=== PATIENT | female | born 1935 | race Caucasian/White ===

== ENCOUNTER 2017-08-12 13:20 | Emergency (ER) | payer MEDICARE, OTHER ==
[2017-08-12] MEDS ORDERED: ASPIRIN 81 MG TABLET, CHEWABLE PO ONE (13:32)
--- NOTE | 2017-08-12 13:33 | ER Document Report ---
ED Medical Screen (RME) - General Chief Complaint: Chest Pain Stated Complaint: CHEST PAIN Time Seen by Provider: 08/12/17 13:31 Notes: The patient is an 82-year-old female, past medical history hypertension, A fib , "leaky heart valve", "aneurysm that is not big enough to fix", current smoker , presents with chest pain for 1 hour. She has had a continuous cough and is being treated for bronchitis. She took 3 nitros mild relief of her chest pain. Patient finished a course of prednisone and Levaquin for bronchitis. PE: No respiratory distress. Scattered wheezes. RRR. I have greeted and performed a rapid initial assessment of this patient. A comprehensive ED assessment and evaluation of the patient, analysis of test results and completion of the medical decision making process will be conducted by additional ED providers. TRAVEL OUTSIDE OF THE [place] IN LAST 30 DAYS: No - Related Data Allergies/Adverse Reactions: Sulfa (Sulfonamide Antibiotics) Allergy (Verified 08/12/17 13:21) Physical Exam - Vital signs Vitals: Temp Pulse Resp BP Pulse Ox 98.6 F 66 20 151/49 H 92 08/12/17 13:36 08/12/17 13:36 08/12/17 13:36 08/12/17 13:36 08/12/17 13:36 Course - Vital Signs Vital signs: Temp Pulse Resp BP Pulse Ox 98.6 F 66 20 151/49 H 92 08/12/17 13:36 08/12/17 13:36 08/12/17 13:36 08/12/17 13:36 08/12/17 13:36
[2017-08-12] MEDS ORDERED: IPRATROPIUM/ALBUTEROL 0.5-2.5 MG/3 ML AMPUL NEB ONE (13:40)
[2017-08-12 14:21] LABS: ABSOLUTE LYMPHOCYTES (AUTO) 0.8 10^3/uL (0.5-4.7); ABSOLUTE MONOCYTES (AUTO) 0.8 10^3/uL (0.1-1.4); ABSOLUTE NEUT (AUTO) 10.4 10^3/uL (1.7-8.2); BASOPHILS % (AUTO) 0.2 % (0-2); HEMATOCRIT 36.4 % (36.0-47.0); HEMOGLOBIN 11.8 g/dL (12.0-15.5); LYMPHOCYTES % (AUTO) 6.6 % (13-45); MEAN CORPUSCULAR HEMOGLOBIN 27.5 pg (27.0-33.4); MEAN CORPUSCULAR HGB CONC 32.5 g/dL (32.0-36.0); MEAN CORPUSCULAR VOLUME 85 fl (80-97); MONOCYTES % (AUTO) 6.9 % (3-13); PLATELET COUNT 268 10^3/uL (150-450); RED CELL DISTRIBUTION WIDTH 21.1 % (11.5-14.0); SEGMENTED NEUTROPHILS % (AUTO) 86.3 % (42-78); TOTAL CELLS COUNTED % (AUTO) 100 %
[2017-08-12] MEDS ORDERED: MAGNESIUM SULFATE/D5W 1 GM/100 ML RTUPB IV ONE (14:53)
[2017-08-12] MEDS ORDERED: METHYLPREDNISOLONE INJ 125 MG/2 ML SDV IV ONE (14:53)
--- NOTE | 2017-08-12 14:57 | RADIOLOGY REPORT (SQ) ---
EXAM DESCRIPTION: CHEST SINGLE VIEW COMPLETED DATE/TIME: 08/12/2017 2:21 pm REASON FOR STUDY: chest pain, cough COMPARISON: December 2006 EXAM PARAMETERS: NUMBER OF VIEWS: One view. TECHNIQUE: Single frontal radiographic view of the chest acquired. RADIATION DOSE: NA LIMITATIONS: None. FINDINGS: LUNGS AND PLEURA: No opacities, masses or pneumothorax. No pleural effusion. MEDIASTINUM AND HILAR STRUCTURES: No masses. Contour normal. HEART AND VASCULAR STRUCTURES: Cardiac silhouette is mildly enlarged. BONES: No acute findings. HARDWARE: None in the chest. OTHER: No other significant finding. IMPRESSION: NO ACUTE RADIOGRAPHIC FINDING IN THE CHEST. TECHNICAL DOCUMENTATION: JOB ID: [id number] [employer]- All Rights Reserved Reading location - IP/workstation name: [email or web address]
[2017-08-12 15:00] LABS: CREATINE KINASE MB 1.33 ng/mL (<4.55); TROPONIN I 0.017 ng/mL
[2017-08-12 16:34] LABS: ALANINE AMINOTRANSFERASE 26 U/L (9-52); ALBUMIN 3.5 g/dL (3.5-5.0); ALKALINE PHOSPHATASE 70 U/L (38-126); ANION GAP 11 (5-19); ASPARTATE AMINO TRANSFERASE 24 U/L (14-36); BILIRUBIN,DIRECT 0.4 mg/dL (0.0-0.4); BILIRUBIN,TOTAL 0.4 mg/dL (0.2-1.3); BLOOD UREA NITROGEN 28 mg/dL (7-20); CARBON DIOXIDE 28 mmol/L (22-30); CHLORIDE 100 mmol/L (98-107); CREATINE KINASE 31 U/L (30-135); GLUCOSE 145 mg/dL (75-110); POTASSIUM 3.4 mmol/L (3.6-5.0); SODIUM 139.3 mmol/L (137-145); TOTAL PROTEIN 6.2 g/dL (6.3-8.2)
--- NOTE | 2017-08-12 17:13 | ER Document Report ---
ED General - General Chief Complaint: Chest Pain Stated Complaint: CHEST PAIN Time Seen by Provider: 08/12/17 13:31 Mode of Arrival: Wheelchair Information source: Patient Notes: This is an 82-year-old female with a history of COPD, atrial fibrillation, recent treatment for URI with levofloxacin, prednisone who presents with cough, congestion, chest tightness. TRAVEL OUTSIDE OF THE [place] IN LAST 30 DAYS: No - HPI Onset: Last week Onset/Duration: Gradual Quality of pain: No pain Severity: None Associated symptoms: Shortness of breath, Other - Chest tightness Exacerbated by: Movement Relieved by: Denies Similar symptoms previously: Yes Recently seen / treated by doctor: Yes - Related Data Allergies/Adverse Reactions: Sulfa (Sulfonamide Antibiotics) Allergy (Verified 08/12/17 13:44) Past Medical History - General Information source: Patient - Social History Smoking Status: Current Every Day Smoker Cigarette use (# per day): Yes - Half a pack per day Chew tobacco use (# tins/day): No Frequency of alcohol use: None Drug Abuse: None Lives with: Family Family History: None Patient has suicidal ideation: No Patient has homicidal ideation: No - Past Medical History Cardiac Medical History: Reports: Hx Atrial Fibrillation, Hx Hypercholesterolemia, Hx Hypertension Renal/ Medical History: Denies: Hx Peritoneal Dialysis GI Medical History: Reports: Hx Gastroesophageal Reflux Disease Past Surgical History: Reports: Hx Cholecystectomy, Hx Hysterectomy Review of Systems - Review of Systems Constitutional: denies: Chills, Fever EENT: No symptoms reported Cardiovascular: No symptoms reported Respiratory: See HPI Gastrointestinal: No symptoms reported Genitourinary: No symptoms reported Female Genitourinary: No symptoms reported Musculoskeletal: No symptoms reported Skin: No symptoms reported Hematologic/Lymphatic: No symptoms reported Neurological/Psychological: No symptoms reported Physical Exam - Vital signs Vitals: Pulse Ox 98 08/12/17 13:32 Notes: Physical exam: GENERAL: 82-year-old female, alert and oriented 3, tachypnea, wheezing audibly HEAD: Atraumatic, normocephalic. EYES: Pupils equal round and reactive to light, extraocular movements intact, sclera anicteric, conjunctiva are normal. ENT: TMs normal, nares patent, oropharynx clear without exudates. Moist mucous membranes. NECK: Normal range of motion, supple without obvious mass or JVD. LUNGS: Lateral wheezes HEART: Regular rate and rhythm without murmurs, rubs or gallops. ABDOMEN: Soft, normoactive bowel sounds. No tenderness to palpation. No guarding, no rebound. No masses appreciated. EXTREMITIES: Normal range of motion, no pitting or edema. No clubbing or cyanosis. NEUROLOGICAL: Cranial nerves II through XII grossly intact. Normal speech, moving all extremities. PSYCH: Normal mood, normal affect. SKIN: Warm, Dry, normal turgor, no rashes or lesions noted. Course - Re-evaluation Re-evalutation: 08/12/17 17:13 Note: Patient looks good and wants to go home and she is improved significantly with nebulizer treatments. Chest x-ray looked good without pneumonia. EKG showed sinus rhythm with a prolonged QTC. Patient was given IV magnesium as well as potassium supplementation. Additionally, will recommend patient stop her levofloxacin. 08/12/17 17:15 - Vital Signs Vital signs: Temp Pulse Resp BP Pulse Ox 98.6 F 66 16 142/56 H 97 08/12/17 13:36 08/12/17 13:36 08/12/17 16:03 08/12/17 16:03 08/12/17 16:03 - Laboratory Result Diagrams: 08/12/17 14:00 08/12/17 16:04 Laboratory results interpreted by me: 08/12/17 08/12/17 14:00 16:04 WBC 12.0 H Hgb 11.8 L RDW 21.1 H Seg Neutrophils % 86.3 H Lymphocytes % 6.6 L Absolute Neutrophils 10.4 H Potassium 3.4 L BUN 28 H Est GFR ( Amer) 54 L Est GFR (Non-Af Amer) 45 L Glucose 145 H Total Protein 6.2 L - Diagnostic Test Radiology reviewed: Image reviewed, Reports reviewed - Chest x-ray shows no infiltrates - EKG Interpretation by Me Rate: Normal Rhythm: NSR - EKG shows normal sinus rhythm with a ventricular rate of 70, no acute ST-T wave changes. The QTC is 514. Discharge - Discharge Clinical Impression: COPD exacerbation Condition: Stable Disposition: HOME, SELF-CARE Additional Instructions: In the emergency room, you were given: Albuterol/ipratropium dual nebs IV Solu-Medrol 125 mg IV magnesium P.o. KCl The chest x-ray showed no pneumonia. Your potassium was a slight bit low (you were given supplementation in the ER). Recommendations: I added a cough syrup that had both the Mucinex and the codeine in it. Take the Medrol Dosepak (this is the steroids) as prescribed. I would like you to stop the antibiotic for ( levofloxacin). Return to the emergency room for any worsening shortness of breath, worsening cough or any concerns or getting worse. I would like you to follow-up with your primary care doctor in the next few days. A copy of today's labs and EKG report with you when you go. Prescriptions: Codeine Phosphate/Guaifenesin [Codeine-Guaifen 10-100 mg/5 ml] 5 ml PO Q4HP PRN #120 liquid PRN Reason: Methylprednisolone [Medrol Dosepack (4 mg/Tab) 21 Tab/Dosepak] 4 mg PO ASDIR PRN #21 tab.ds.pk PRN Reason: Referrals: PARRISH RASHID MD [Primary Care Provider] - Follow up in 3-5 days
[2017-08-12] MEDS ORDERED: POTASSIUM CHLORIDE 10 MEQ TABLET.SA PO ONE (17:15)
[2017-08-12 17:44] VITALS: BP 158/65
--- NOTE | 2017-08-12 22:21 | EKG REPORT ---
SEVERITY:- ABNORMAL ECG - SINUS RHYTHM LEFT VENTRICULAR HYPERTROPHY INFERIOR INFARCT, OLD PROLONGED QT INTERVAL : Confirmed by: Elida Patino 12-Aug-2017 22:20:17
== END 2017-08-12 17:40 | disposition home or self-care (01) ==
LOC: ER 13:20
DX: J44.1 Chronic obstructive pulmonary disease with (acute) exacerbation (principal); R07.89 Other chest pain; R05 Cough; R06.02 Shortness of breath; F17.210 Nicotine dependence, cigarettes, uncomplicated; I10 Essential (primary) hypertension; Z88.2 Allergy status to sulfonamides
CPT/HCPCS: 93005; 94640; 99285; 96375; 96365; 36415; 82553; 82550; 85025; 80053; 84484; 71045; 93010; A9270 ×3; J2930; J3475; J7620

== ENCOUNTER 2017-08-23 11:49 | Inpatient (IN) | payer MEDICARE, OTHER ==
[2017-08-23] MEDS ORDERED: FENTANYL CITRATE INJ/PF 100 MCG/2 ML AMPUL IV ONE ×2 (12:07→13:23)
--- NOTE | 2017-08-23 12:13 | ER Document Report ---
ED Fall - General Mode of Arrival: Ambulatory Information source: Patient TRAVEL OUTSIDE OF THE [place] IN LAST 30 DAYS: No <KB JUÁREZ - Last Filed: 08/23/17 12:17> <TAD ALEJANDRO - Last Filed: 08/23/17 13:36> - General Chief Complaint: Fall Stated Complaint: THIGH PAIN Time Seen by Provider: 08/23/17 11:58 Notes: Patient is an 82 year old female with lung cancer and a recent left upper lobectomy presents to the emergency department complaining of right thigh pain secondary to a mechanical trip and fall. Patient states she tripped on something and landed on the floor in her house on the right side. Patient states she was attempting to brace her fall with her right arm. She report being unable to stand on her right leg due to pain. Patient also complains of some lower back pain. Patient denies head trauma or loss of consciousness. Patient had her left upper lobectomy in April 2017. [facility]. (KB JUÁREZ) - Related data Allergies/Adverse Reactions: Sulfa (Sulfonamide Antibiotics) Allergy (Verified 08/12/17 13:44) Past Medical History - General Information source: Patient - Social History Smoking Status: Current Some Day Smoker Cigarette use (# per day): Yes - 1/2 a pack a day Family History: None - Past Medical History Cardiac Medical History: Reports: Hx Atrial Fibrillation, Hx Hypercholesterolemia, Hx Hypertension GI Medical History: Reports: Hx Gastroesophageal Reflux Disease Past Surgical History: Reports: Hx Cholecystectomy, Hx Hysterectomy <KB JUÁREZ - Last Filed: 08/23/17 12:17> Review of Systems - Review of Systems Constitutional: No symptoms reported EENT: No symptoms reported Cardiovascular: No symptoms reported Respiratory: No symptoms reported Gastrointestinal: No symptoms reported Genitourinary: No symptoms reported Female Genitourinary: No symptoms reported Musculoskeletal: See HPI, Back pain Skin: No symptoms reported Hematologic/Lymphatic: No symptoms reported Neurological/Psychological: No symptoms reported -: Yes All other systems reviewed and negative <KB JUÁREZ - Last Filed: 08/23/17 12:17> Physical Exam - General General appearance: Appears well, Alert In distress: None - HEENT Head: Normocephalic, Atraumatic Eyes: Normal Conjunctiva: Normal Extraocular movements intact: Yes Pupils: PERRL Neck: Normal - Respiratory Respiratory status: No respiratory distress, Tachypnea Chest status: Nontender Breath sounds: Normal. No: Wheezing Chest palpation: Normal - Cardiovascular Rhythm: Irregularly irregular Heart sounds: Normal auscultation Murmur: Yes Friction rub: No Gallop: None auscultated - Abdominal Inspection: Normal Distension: No distension Bowel sounds: Normal Tenderness: Nontender Organomegaly: No organomegaly - Back Back: Normal, Nontender - Nontender to the lumbar sacral region which is where patinet mentioned some pain. No: Tender - Extremities General upper extremity: Normal ROM. No: Edema General lower extremity: Other - Right leg is exteranally rotates and shortned. Patinet is tender to palpation to the right hip. - Neurological Neuro grossly intact: Yes Cognition: Normal Orientation: AAOx4 Cathy Coma Scale Eye Opening: Spontaneous [place]athy Coma Scale Verbal: Oriented [place] Coma Scale Motor: Obeys Commands [place] Coma Scale Total: 15 Speech: Normal - Psychological Associated symptoms: Normal affect, Normal mood - Skin Skin Temperature: Warm Skin Moisture: Dry Skin Color: Normal <KB JUÁREZ - Last Filed: 08/23/17 12:17> - Vital signs Vitals: Temp Pulse Resp BP Pulse Ox 98.4 F 69 17 127/40 H 96 08/23/17 11:57 08/23/17 11:57 08/23/17 11:57 08/23/17 11:57 08/23/17 11:57 Course - Diagnostic Test Radiology reviewed: Image reviewed, Reports reviewed - Right hip intertrochanteric fracture - Consults Dr. Reynaga Consulted provider: will see as inpatient Amar[facility] Time consulted: 13:30 Consulted provider: will come to ER <TAD ALEJANDRO - Last Filed: 08/23/17 13:36> - Vital Signs Vital signs: Temp Pulse Resp BP Pulse Ox 98.4 F 69 17 127/40 H 96 08/23/17 11:57 08/23/17 11:57 08/23/17 11:57 08/23/17 11:57 08/23/17 11:57 Discharge <KB JUÁREZ - Last Filed: 08/23/17 12:17> - Discharge Admitting Provider: Hospitalist Unit Admitted: Medical Floor <TAD ALEJANDRO - Last Filed: 08/23/17 13:36> - Discharge Clinical Impression: Chronic atrial fibrillation Closed right hip fracture Qualifiers: Encounter type: initial encounter Qualified Code(s): S72.001A - Fracture of unspecified part of neck of right femur, initial encounter for closed fracture COPD (chronic obstructive pulmonary disease) Qualifiers: COPD type: unspecified COPD Qualified Code(s): J44.9 - Chronic obstructive pulmonary disease, unspecified Condition: Stable Disposition: ADMITTED INPATIENT Referrals: PARRISH RASHID MD [NO LOCAL MD] - Follow up as needed Scribe Attestation: 08/23/17 13:11 I personally performed the services described in the documentation, reviewed and edited the documentation which was dictated to the scribe in my presence, and it accurately records my words and actions. (TAD ALEJANDRO) Scribe Documentation - Scribe Written by Scribe:: Hever Sky, 08/23/2017 12:16 acting as scribe for :: Margie <KB JUÁREZ - Last Filed: 08/23/17 12:17>
--- NOTE | 2017-08-23 13:11 | RADIOLOGY REPORT (SQ) ---
EXAM DESCRIPTION: HIP RIGHT AP/LATERAL COMPLETED DATE/TIME: 08/23/2017 12:54 pm REASON FOR STUDY: fall, right hip and thigh pain COMPARISON: None. NUMBER OF VIEWS: Two views. TECHNIQUE: AP pelvis and additional frog-leg view of the right hip. LIMITATIONS: None. FINDINGS: MINERALIZATION: Osteopenic RIGHT HIP: Acute comminuted right intertrochanteric proximal femoral fracture with mild varus angulat ion. LEFT HIP: No fracture or dislocation. No worrisome bone lesions. PUBIS AND ISCHIUM: No fracture. PELVIS: No fracture. SACRUM: No fracture or dislocation. No worrisome bone lesions. LOWER LUMBAR SPINE: No fracture or dislocation. SOFT TISSUES: No findings. OTHER: No other significant finding. IMPRESSION: Acute comminuted right intertrochanteric proximal femoral fracture with mild varus angul ation. TECHNICAL DOCUMENTATION: JOB ID: [id number] [employer]- All Rights Reserved Reading location - IP/workstation name: [email or web address]
[2017-08-23 13:42] LABS: APPEARANCE,URINE CLEAR; BILIRUBIN,URINE NEGATIVE (NEGATIVE); COLOR,URINE STRAW; GLUCOSE, URINE NEGATIVE (NEGATIVE); KETONES,URINE NEGATIVE (NEGATIVE); LEUKOCYTE ESTERASE,URINE NEGATIVE (NEGATIVE); NITRITE,URINE NEGATIVE (NEGATIVE); PROTEIN,URINE NEGATIVE (NEGATIVE); URINE SPECIFIC GRAVITY 1.006; UROBILINOGEN,URINE NEGATIVE mg/dL (<2.0)
[2017-08-23 13:57] LABS: INTERNATIONAL RATION (INR) 1.37; PROTHROMBIN TIME 17.6 SEC (11.4-15.4)
[2017-08-23 14:04] LABS: ABSOLUTE BASOPHILS # (AUTO) 0.1 10^3/uL (0.0-0.2); ABSOLUTE EOSINOPHILS # (AUTO) 0.1 10^3/uL (0.0-0.6); ABSOLUTE MONOCYTES (AUTO) 1.4 10^3/uL (0.1-1.4); ABSOLUTE NEUT (AUTO) 14.8 10^3/uL (1.7-8.2); BASOPHILS % (AUTO) 0.5 % (0-2); EOSINOPHILS % (AUTO) 0.7 % (0-6); HEMOGLOBIN 11.2 g/dL (12.0-15.5); LYMPHOCYTES % (AUTO) 5.6 % (13-45); MEAN CORPUSCULAR HEMOGLOBIN 27.8 pg (27.0-33.4); MEAN CORPUSCULAR HGB CONC 32.8 g/dL (32.0-36.0); MEAN CORPUSCULAR VOLUME 85 fl (80-97); MONOCYTES % (AUTO) 7.8 % (3-13); PLATELET COUNT 177 10^3/uL (150-450); RED BLOOD COUNT 4.01 10^6/uL (3.72-5.28); RED CELL DISTRIBUTION WIDTH 20.8 % (11.5-14.0); SEGMENTED NEUTROPHILS % (AUTO) 85.4 % (42-78); TOTAL CELLS COUNTED % (AUTO) 100 %; WHITE BLOOD COUNT 17.4 10^3/uL (4.0-10.5)
[2017-08-23 14:11] LABS: ALANINE AMINOTRANSFERASE 29 U/L (9-52); ALKALINE PHOSPHATASE 74 U/L (38-126); ANION GAP 6 (5-19); ASPARTATE AMINO TRANSFERASE 24 U/L (14-36); BILIRUBIN,DIRECT 0.4 mg/dL (0.0-0.4); BILIRUBIN,TOTAL 0.7 mg/dL (0.2-1.3); BLOOD UREA NITROGEN 17 mg/dL (7-20); CALCIUM 8.4 mg/dL (8.4-10.2); CARBON DIOXIDE 26 mmol/L (22-30); CHLORIDE 106 mmol/L (98-107); CREATINE KINASE 25 U/L (30-135); GLUCOSE 102 mg/dL (75-110); POTASSIUM 4.1 mmol/L (3.6-5.0); SODIUM 137.9 mmol/L (137-145); TOTAL PROTEIN 5.5 g/dL (6.3-8.2)
[2017-08-23 14:23] LABS: ANISOCYTOSIS 2+; OVALOCYTES SLIGHT; PLATELET COMMENT ADEQUATE; POIKILOCYTOSIS 1+; POLYCHROMASIA SLIGHT; TEAR DROP CELLS SLIGHT; TOXIC VACUOLATION PRESENT
--- NOTE | 2017-08-23 15:11 | PDOC H&P ---
History of Present Illness Admission Date/PCP: 08/23/17 13:52 KISHA PAYNE MD History of Present Illness: NILES KRUEGER is a 82 year old female who was getting ready for taoist this morning and then decided to take out the trash and when she turned around to get a new bag to put in the can she suffered a mechanical fall and fell on her right side. She did not hit her head. She did not lose consciousness. She felt pain in her right hip. She was able to get help relatively quickly. She was brought into the emergency department and was diagnosed with a fracture of the right femur. Orthopedics was contacted. Reportedly because of her age and her comorbidities orthopedics asked for us to admit this patient. She has no acute medical problems but she does have a history of COPD. She also had a history of atrial fibrillation and is on anticoagulant which she is currently in a sinus rhythm. She said she had no somatic complaints before she fell today. Past Medical History Cardiac Medical History: Reports: Atrial Fibrillation, Hyperlipidema, Hypertension GI Medical History: Reports: Gastroesophageal Reflux Disease Past Surgical History Past Surgical History: Reports: Cholecystectomy, Hysterectomy Social History Information Source: Patient Smoking Status: Current Some Day Smoker Family History Family History: Reviewed & Not Pertinent Parental Family History Reviewed: No - Noncontributory Children Family History Reviewed: NA Sibling(s) Family History Reviewed.: NA Medication/Allergy Home Medications: Alendronate Sodium [Fosamax] 70 mg PO ASDIR PRN 08/12/17 Amiodarone HCl [Cordarone 200 mg Tablet] 200 mg PO BID 08/12/17 Apixaban [Eliquis 5 mg Tablet] 5 mg PO BID 08/12/17 Aspirin [Aspirin EC] 81 mg PO DAILY 08/12/17 Cholecalciferol (Vitamin D3) [Vitamin D] 2,000 unit PO DAILY 08/12/17 Codeine Phosphate/Guaifenesin [Codeine-Guaifen 10-100 mg/5 ml] 5 ml PO Q4HP PRN #120 liquid 08/12/17 Furosemide [Lasix 40 mg Tablet] 40 mg PO QAM 08/12/17 Pantoprazole Sodium [Protonix] 40 mg PO DAILY 08/12/17 Simvastatin [Zocor 20 mg Tablet] 20 mg PO DAILY 08/12/17 Ascorbic Acid [Vitamin C 500 mg Tablet] 1,000 mg PO DAILY 08/23/17 Diazepam [Valium 5 mg Tablet] 5 mg PO DAILYP PRN 08/23/17 Ferrous Sulfate [Feosol 325 mg Tablet] 325 mg PO DAILY 08/23/17 Fexofenadine HCl [Carol] 180 mg PO DAILY 08/23/17 Allergies/Adverse Reactions: Sulfa (Sulfonamide Antibiotics) Allergy (Verified 08/12/17 13:44) Review of Systems All systems: reviewed and no additional remarkable complaints except as stated - 10 point review of systems was conducted with the patient was negative except as noted above in HPI Physical Exam Vital Signs: Temp Pulse Resp BP Pulse Ox 98.4 F 69 17 127/40 H 96 08/23/17 11:57 08/23/17 11:57 08/23/17 11:57 08/23/17 11:57 08/23/17 11:57 General appearance: PRESENT: no acute distress, well-developed, well-nourished Eye exam: PRESENT: conjunctiva pink, EOMI, PERRLA. ABSENT: scleral icterus Ear exam: PRESENT: normal external ear exam Mouth exam: PRESENT: moist, neck supple Throat exam: ABSENT: post pharyngeal erythema, tonsillar exudate Neck exam: ABSENT: carotid bruit, JVD, lymphadenopathy, thyromegaly Respiratory exam: PRESENT: clear to auscultation chava. ABSENT: rales, rhonchi, wheezes Cardiovascular exam: PRESENT: RRR. ABSENT: diastolic murmur, rubs, systolic murmur Vascular exam: PRESENT: normal capillary refill GI/Abdominal exam: PRESENT: normal bowel sounds, soft. ABSENT: distended, guarding, mass, organolmegaly, rebound, tenderness Extremities exam: PRESENT: tenderness - Right hip. ABSENT: clubbing, pedal edema Musculoskeletal exam: PRESENT: deformity - Right lower extremity is externally rotated, other - She had a bruise on her right elbow Neurological exam: PRESENT: alert, awake, oriented to person, oriented to place , oriented to time, CN II-XII grossly intact Skin exam: PRESENT: dry, warm Results Impressions: Hip/Pelvis X-Ray 08/23/17 12:08 IMPRESSION: Acute comminuted right intertrochanteric proximal femoral fracture with mild varus angulation. Assessment & Plan - Diagnosis (1) COPD (chronic obstructive pulmonary disease) Qualifiers: COPD type: unspecified COPD Qualified Code(s): J44.9 - Chronic obstructive pulmonary disease, unspecified Is this a current diagnosis for this admission?: Yes Plan: Not acutely exacerbated. Continue home medications. (2) Chronic atrial fibrillation Is this a current diagnosis for this admission?: Yes Plan: Currently normal sinus rhythm. Her Eliquis will be held for a couple days prior to surgery. (3) Closed right hip fracture Qualifiers: Encounter type: initial encounter Qualified Code(s): S72.001A - Fracture of unspecified part of neck of right femur, initial encounter for closed fracture Is this a current diagnosis for this admission?: Yes Plan: Surgery been consulted. She will have to be off Eliquis for a couple of days prior to surgery. Pain control and bedrest. - Time Time Spent: 50 to 70 Minutes Smoking Cessation Education: 3 to 10 minutes Medications reviewed and adjusted accordingly: Yes Anticipated discharge: SNF - Inpatient Certification Medical Necessity: Need for Surgery
--- NOTE | 2017-08-23 15:36 | RADIOLOGY REPORT (SQ) ---
EXAM DESCRIPTION: CHEST SINGLE VIEW COMPLETED DATE/TIME: 08/23/2017 2:28 pm REASON FOR STUDY: fx hip, COPD COMPARISON: 08/12/2017 NUMBER OF VIEWS: One view. TECHNIQUE: Single frontal radiographic view of the chest acquired. LIMITATIONS: None. FINDINGS: LUNGS AND PLEURA: No opacities, masses or pneumothorax. No pleural effusion. MEDIASTINUM AND HILAR STRUCTURES: No masses. Contour normal. HEART AND VASCULAR STRUCTURES: Heart enlarged without failure. Normal vasculature. BONES: No acute findings. HARDWARE: None in the chest. OTHER: No other significant finding. IMPRESSION: HEART ENLARGED WITHOUT FAILURE. NO OTHER SIGNIFICANT RADIOGRAPHIC FINDING IN THE CHEST. TECHNICAL DOCUMENTATION: JOB ID: [id number] [employer]- All Rights Reserved Reading location - IP/workstation name: [email or web address]
--- NOTE | 2017-08-23 15:37 | RADIOLOGY REPORT (SQ) ---
EXAM DESCRIPTION: L SPINE 2 VIEWS COMPLETED DATE/TIME: 08/23/2017 2:22 pm REASON FOR STUDY: fall, fx hip, LBP COMPARISON: None. NUMBER OF VIEWS: Two views. TECHNIQUE: AP and lateral radiographic images acquired of the lumbar spine. LIMITATIONS: None. FINDINGS: MINERALIZATION: Severe osteopenia. SEGMENTATION: Normal. No transitional anatomy. ALIGNMENT: Normal. VERTEBRAE: Maintained height. No fracture or worrisome bone lesion. DISCS: Diffuse degenerative disc disease. POSTERIOR ELEMENTS: Pedicles and facets are intact. No pars defect or posterior arch defects. HARDWARE: None in the spine. PARASPINAL SOFT TISSUES: Normal. PELVIS: Intact as visualized. No fractures or worrisome bone lesions. SI joints intact. OTHER: No other significant finding. IMPRESSION: Severe osteopenia. Diffuse degenerative disc disease. TECHNICAL DOCUMENTATION: JOB ID: [id number] [employer]- All Rights Reserved Reading location - IP/workstation name: [email or web address]
[2017-08-23] MEDS ORDERED: ENOXAPARIN SODIUM INJ 40 MG/0.4 ML DISP.SYRIN SUBCUT ONE (16:00)
[2017-08-23] MEDS: MORPHINE SULFATE 10 MG/ML INJ IV PRN ×2 (16:26→19:49)
[2017-08-23] MEDS ORDERED: PROCHLORPERAZINE EDISYLATE INJ 10 MG/2 ML VIAL IV PRN (17:39)
--- NOTE | 2017-08-23 19:09 | EKG REPORT ---
SEVERITY:- ABNORMAL ECG - SINUS RHYTHM MULTIPLE ATRIAL PREMATURE COMPLEXES LEFT VENTRICULAR HYPERTROPHY INFERIOR INFARCT, OLD : Confirmed by: Josephine Marion MD 23-Aug-2017 19:08:33
[2017-08-23] MEDS ORDERED: SIMVASTATIN 10 MG TABLET PO ONE (22:00)
[2017-08-24] MEDS: MORPHINE SULFATE 10 MG/ML INJ IV PRN ×6 (03:13→20:03)
[2017-08-24] MEDS: LANSOPRAZOLE 30 MG TAB.RAP.DR PO SCH (05:18)
[2017-08-24 05:44] LABS: HEMATOCRIT 29.9 % (36.0-47.0); HEMOGLOBIN 10.1 g/dL (12.0-15.5); MEAN CORPUSCULAR HEMOGLOBIN 28.6 pg (27.0-33.4); MEAN CORPUSCULAR HGB CONC 33.8 g/dL (32.0-36.0); MEAN CORPUSCULAR VOLUME 85 fl (80-97); PLATELET COUNT 155 10^3/uL (150-450); RED BLOOD COUNT 3.53 10^6/uL (3.72-5.28); RED CELL DISTRIBUTION WIDTH 20.6 % (11.5-14.0); WHITE BLOOD COUNT 10.7 10^3/uL (4.0-10.5)
[2017-08-24 06:01] LABS: ANION GAP 6 (5-19); BLOOD UREA NITROGEN 15 mg/dL (7-20); CARBON DIOXIDE 26 mmol/L (22-30); CHLORIDE 103 mmol/L (98-107); GLUCOSE 92 mg/dL (75-110); POTASSIUM 4.3 mmol/L (3.6-5.0); SODIUM 134.9 mmol/L (137-145)
[2017-08-24] MEDS: FUROSEMIDE 40 MG TABLET PO SCH (08:09)
[2017-08-24] MEDS: CHOLECALCIFEROL (D3) 1,000 UNIT TABLET PO SCH (09:32)
[2017-08-24] MEDS: ASPIRIN 81 MG TABLET, ENT COATED PO SCH (09:32)
[2017-08-24] MEDS: AMIODARONE HCL 200 MG TABLET PO SCH (09:33)
[2017-08-24] MEDS ORDERED: (PENDING PHARMACY ID) (Cholecalciferol (Vitamin D3) [Vitamin D3] 2,000 UNIT) PO SCH (10:00)
[2017-08-24] MEDS ORDERED: BISACODYL 10 MG SUPP.RECT PR PRN (12:02)
[2017-08-24] MEDS ORDERED: ENOXAPARIN SODIUM INJ 40 MG/0.4 ML DISP.SYRIN SUBCUT ONE (12:15)
--- NOTE | 2017-08-24 18:05 | PDOC PROGRESS REPORT ---
Subjective Progress Note for:: 08/24/17 Subjective:: No adverse events overnight. No new complaints. Her pain has been well controlled. She has been in normal sinus rhythm on the monitor. Vital signs been stable. Reason For Visit: RIGHT FEMUR FRACTURE Physical Exam Vital Signs: Temp Pulse Resp BP Pulse Ox 98.8 F 80 17 125/31 L 98 08/24/17 15:43 08/24/17 15:43 08/24/17 15:43 08/24/17 16:36 08/24/17 15:43 Intake & Output 08/23/17 08/24/17 08/25/17 06:59 06:59 06:59 Intake Total 237 Output Total 650 Balance -413 Weight 66.3 kg General appearance: PRESENT: no acute distress, well-developed, well-nourished Respiratory exam: PRESENT: clear to auscultation chava. ABSENT: rales, rhonchi, wheezes Cardiovascular exam: PRESENT: RRR. ABSENT: diastolic murmur, rubs, systolic murmur GI/Abdominal exam: PRESENT: normal bowel sounds, soft. ABSENT: distended, guarding, mass, organolmegaly, rebound, tenderness Extremities exam: ABSENT: clubbing, pedal edema Musculoskeletal exam: PRESENT: deformity - Her right lower extremity is externally rotated Neurological exam: PRESENT: alert, awake, oriented to person, oriented to place , oriented to time Results Laboratory Results: 08/24/17 03:53 08/24/17 03:53 08/24/17 08/24/17 03:53 03:53 WBC 10.7 H RBC 3.53 L Hgb 10.1 L Hct 29.9 L MCV 85 MCH 28.6 MCHC 33.8 RDW 20.6 H Plt Count 155 Sodium 134.9 L Potassium 4.3 Chloride 103 Carbon Dioxide 26 Anion Gap 6 BUN 15 Creatinine 1.02 Est GFR ( Amer) > 60 Est GFR (Non-Af Amer) 52 L Glucose 92 Calcium 8.0 L Impressions: Hip/Pelvis X-Ray 08/23/17 12:08 IMPRESSION: Acute comminuted right intertrochanteric proximal femoral fracture with mild varus angulation. Chest X-Ray 08/23/17 13:29 IMPRESSION: HEART ENLARGED WITHOUT FAILURE. NO OTHER SIGNIFICANT RADIOGRAPHIC FINDING IN THE CHEST. Lumbar Spine X-Ray 08/23/17 13:33 IMPRESSION: Severe osteopenia. Diffuse degenerative disc disease. Assessment & Plan - Diagnosis (1) COPD (chronic obstructive pulmonary disease) Qualifiers: COPD type: unspecified COPD Qualified Code(s): J44.9 - Chronic obstructive pulmonary disease, unspecified Is this a current diagnosis for this admission?: Yes Plan: Not acutely exacerbated. Continue home medications. (2) Chronic atrial fibrillation Is this a current diagnosis for this admission?: Yes Plan: Currently normal sinus rhythm. Her Eliquis will be held for a couple days prior to surgery. (3) Closed right hip fracture Qualifiers: Encounter type: initial encounter Qualified Code(s): S72.001A - Fracture of unspecified part of neck of right femur, initial encounter for closed fracture Is this a current diagnosis for this admission?: Yes Plan: Surgery been consulted. She will have to be off Eliquis for a couple of days prior to surgery, and by tomorrow morning she will have been off of it for about 48 hours. Pain control and bedrest.
--- NOTE | 2017-08-24 19:01 | PDOC CONSULTATION ---
Consultation Consult Date: 08/24/17 Consult reason:: Right hip fracture History of Present Illness Admission Date/PCP: 08/23/17 13:52 KISHA PAYNE MD Patient complains of: Right hip pain and inability to weight-bear History of Present Illness: NILES KRUEGER is a 82 year old female with comorbidities of COPD and atrial fibrillation. Currently is 24 hours from last dose of Eliquis. Patient was going to [employer] and tripped and fell on her right hip. Immediately had hip pain and inability to weight-bear therefore she was brought by EMS to [facility]. Further evaluation showed the patient had a displaced intertrochanteric right hip fracture. Denies any other extremity injury denies any incontinence. Complains of 5 out of 5 pain with attempted range of motion. Describes the pain as sharp and in the groin. Denies any other extremity injury. Past Medical History Cardiac Medical History: Reports: Atrial Fibrillation, Hyperlipidema, Hypertension GI Medical History: Reports: Gastroesophageal Reflux Disease Psychiatric Medical History: Denies: Depression Past Surgical History Past Surgical History: Reports: Cholecystectomy, Hysterectomy Social History Smoking Status: Current Some Day Smoker Cigarettes Packs Per Day: 1.5 Frequency of Alcohol Use: None Hx Recreational Drug Use: No Drugs: None Hx Prescription Drug Abuse: No Family History Family History: Reviewed & Not Pertinent Parental Family History Reviewed: No Children Family History Reviewed: No Sibling(s) Family History Reviewed.: No Medication/Allergy Home Medications: Alendronate Sodium [Fosamax] 70 mg PO PINEDA@1000 08/12/17 Amiodarone HCl [Cordarone 200 mg Tablet] 200 mg PO DAILY 08/12/17 Apixaban [Eliquis 5 mg Tablet] 5 mg PO BID 08/12/17 Aspirin [Aspirin EC] 81 mg PO DAILY 08/12/17 Cholecalciferol (Vitamin D3) [Vitamin D] 2,000 unit PO DAILY 08/12/17 Codeine Phosphate/Guaifenesin [Codeine-Guaifen 10-100 mg/5 ml] 5 ml PO Q4HP PRN #120 liquid 08/12/17 Furosemide [Lasix 40 mg Tablet] 40 mg PO QAM 08/12/17 Pantoprazole Sodium [Protonix] 40 mg PO DAILY 08/12/17 Simvastatin [Zocor 20 mg Tablet] 20 mg PO DAILY 08/12/17 Ascorbic Acid [Vitamin C 500 mg Tablet] 1,000 mg PO DAILY 08/23/17 Fexofenadine HCl [Carol] 180 mg PO DAILY 08/23/17 Allergies/Adverse Reactions: Sulfa (Sulfonamide Antibiotics) Allergy (Verified 08/12/17 13:44) Review of Systems Constitutional: ABSENT: chills, fever(s), headache(s) Eyes: ABSENT: visual disturbances Ears: ABSENT: hearing changes Nose, Mouth, and Throat: ABSENT: sore throat Cardiovascular: ABSENT: chest pain, orthropnea, palpitations Respiratory: ABSENT: dyspnea, hemoptysis Gastrointestinal: ABSENT: diarrhea, dysphagia Genitourinary: ABSENT: dysuria, hematuria Musculoskeletal: PRESENT: as per HPI Integumentary: ABSENT: erythema, lesions, rash Neurological: ABSENT: numbness, paresthesias, syncope, vertigo Psychiatric: ABSENT: homidical ideation, suicidal ideation Endocrine: ABSENT: cold intolerance, heat intolerance Hematologic/Lymphatic: ABSENT: lymphadenopathy Allergic/Immunologic: ABSENT: seasonal rhinorrhea Physical Exam Vital Signs: Temp Pulse Resp BP Pulse Ox 37.1 C 80 17 125/31 L 98 08/24/17 15:43 08/24/17 15:43 08/24/17 15:43 08/24/17 16:36 08/24/17 15:43 Intake & Output 08/23/17 08/24/17 08/25/17 06:59 06:59 06:59 Intake Total 237 1039 Output Total 650 900 Balance -413 139 Weight 66.3 kg General appearance: PRESENT: no acute distress Eye exam: PRESENT: EOMI, PERRLA. ABSENT: nystagmus Ear exam: PRESENT: normal external ear exam Mouth exam: PRESENT: neck supple Neck exam: ABSENT: lymphadenopathy Respiratory exam: PRESENT: symmetrical, unlabored. ABSENT: accessory muscle use , tachypnea Cardiovascular exam: PRESENT: RRR Pulses: PRESENT: normal radial pulses, +2 pedal pulses bilateral Vascular exam: PRESENT: normal capillary refill Neurological exam: PRESENT: alert, awake, oriented to person, oriented to place , oriented to time, oriented to situation Psychiatric exam: PRESENT: appropriate affect, normal mood Skin exam: PRESENT: intact. ABSENT: petechiae, rash, skin tears Adult Front & Back Image: 1 - Short and externally rotated right lower extremity. Tenderness to palpation of the right groin and immediate pain with attempted will logroll and flexion. She has good gross sensation to light touch distally with good capillary refill. Able to flex and extend her ankle and toes with 5 out of 5 motor. Results Laboratory Results: 08/24/17 03:53 08/24/17 03:53 08/24/17 08/24/17 03:53 03:53 WBC 10.7 H RBC 3.53 L Hgb 10.1 L Hct 29.9 L MCV 85 MCH 28.6 MCHC 33.8 RDW 20.6 H Plt Count 155 Sodium 134.9 L Potassium 4.3 Chloride 103 Carbon Dioxide 26 Anion Gap 6 BUN 15 Creatinine 1.02 Est GFR ( Amer) > 60 Est GFR (Non-Af Amer) 52 L Glucose 92 Calcium 8.0 L Impressions: Hip/Pelvis X-Ray 08/23/17 12:08 IMPRESSION: Acute comminuted right intertrochanteric proximal femoral fracture with mild varus angulation. Chest X-Ray 08/23/17 13:29 IMPRESSION: HEART ENLARGED WITHOUT FAILURE. NO OTHER SIGNIFICANT RADIOGRAPHIC FINDING IN THE CHEST. Lumbar Spine X-Ray 08/23/17 13:33 IMPRESSION: Severe osteopenia. Diffuse degenerative disc disease. Status: Image reviewed by me Assessment & Plan - Diagnosis (1) Closed right hip fracture Qualifiers: Encounter type: initial encounter Qualified Code(s): S72.001A - Fracture of unspecified part of neck of right femur, initial encounter for closed fracture Is this a current diagnosis for this admission?: Yes Plan: 82-year-old female status post mechanical fall suffering a right displaced basicervical intertrochanteric hip fracture. Discussed with her the pros and cons of proceeding with cephalo-medullary nailing of her right hip fracture. Patient has agreed to consent and proceed with surgery. Meantime pain control and bedrest and placed the patient n.p.o. after midnight. Discussed the case with my partners to will take over care and likely do the procedure tomorrow after being off of Eliquis for 48 hours.
[2017-08-24] MEDS: SIMVASTATIN 40 MG TABLET PO SCH (21:05)
[2017-08-25] MEDS: MORPHINE SULFATE 10 MG/ML INJ IV PRN ×3 (00:05→06:53)
[2017-08-25] MEDS: LANSOPRAZOLE 30 MG TAB.RAP.DR PO SCH (04:28)
[2017-08-25 05:37] LABS: HEMATOCRIT 30.5 % (36.0-47.0); HEMOGLOBIN 10.2 g/dL (12.0-15.5); MEAN CORPUSCULAR HEMOGLOBIN 28.4 pg (27.0-33.4); MEAN CORPUSCULAR HGB CONC 33.4 g/dL (32.0-36.0); MEAN CORPUSCULAR VOLUME 85 fl (80-97); PLATELET COUNT 156 10^3/uL (150-450); RED BLOOD COUNT 3.59 10^6/uL (3.72-5.28); RED CELL DISTRIBUTION WIDTH 20.1 % (11.5-14.0); WHITE BLOOD COUNT 10.5 10^3/uL (4.0-10.5)
[2017-08-25 06:07] LABS: ANION GAP 5 (5-19); BLOOD UREA NITROGEN 12 mg/dL (7-20); CARBON DIOXIDE 28 mmol/L (22-30); CHLORIDE 100 mmol/L (98-107); GLUCOSE 103 mg/dL (75-110); POTASSIUM 4.1 mmol/L (3.6-5.0); SODIUM 133.2 mmol/L (137-145)
--- NOTE | 2017-08-25 06:13 | EKG REPORT ---
SEVERITY:- DEFECTIVE ECG - SINUS RHYTHM LEFT VENTRICULAR HYPERTROPHY INFERIOR INFARCT, OLD BORDERLINE PROLONGED QT INTERVAL V3 LEAD PLACEMENT ERROR : Confirmed by: Cody López MD 25-Aug-2017 06:13:04
[2017-08-25] MEDS ORDERED: CEFAZOLIN 2 GM/D5W RTU 2 GM/50 ML RTUPB IV PRN (06:46)
[2017-08-25] MEDS: RINGERS SOLUTION,LACTATED 1,000 ML IV PRN ×2 (06:53→16:36)
[2017-08-25] MEDS ORDERED: ENOXAPARIN SODIUM INJ 40 MG/0.4 ML DISP.SYRIN SUBCUT SCH (10:00)
--- NOTE | 2017-08-25 10:05 | XCELERA REPORT ---
[address] [address] Transthoracic Echocardiogram Report Name: NILES KRUEGER Age: 82 yrs Gender: Female : 1935 Patient Status: Inpatient Patient Location: [address] [place], [place] [address] Study Date: 08/25/2017 08:49 AM Height: 63 in Weight: 146 lb BSA: 1.7 m2 Procedure: A two-dimensional transthoracic echocardiogram with color flow and Doppler was performed. The study was technically difficult with many images being suboptimal in quality. Reason For Study: PAF / Murmur/Preop cardiac exam History: PAF / Murmur/Preop cardiac exam. Ordering Physician: NATALYA MALAVE Performed By: Dalton Grijalva Interpretation Summary The left ventricle is normal in size. There is normal left ventricular wall thickness. LV EF is 65% Left ventricular systolic function is normal. Doppler measurements suggest impaired left ventricular relaxation, which is associated with grade I/IV or mild diastolic dysfunction The left ventricular wall motion is normal. There is no thrombus. The right ventricle is not well visualized secondary to technical limitations The left atrial size is normal. RA grossly normal size. There is no evidence of mitral valve prolapse. There is no mitral valve stenosis. There is no mitral regurgitation noted. There is no aortic valvular vegetation. The aortic valve is mildly calcified There is no aortic valve stenosis There is no LVOT obstruction. There is a moderate amount of aortic regurgitation There is no tricuspid stenosis. There is a trace amount of tricuspid regurgitation Right ventricular systolic pressure is normal. RVSP is 24 to 29 mm of Hg , with RA mean of 5 to 10. There is no pulmonic valvular stenosis. There is a trace amount of pulmonic regurgitation The aortic root is moderately dilated Possible Aortic root aneurysm. The inferior vena cava appeared normal and decreased > 50% with respiration (RAP 5-10 mmHg) There is no pericardial effusion. MMode/2D Measurements & Calculations RVDd: 3.8 cm LVIDd: 5.3 cm FS: 32.6 % Ao root diam: 4.5 cm IVSd: 0.71 cm LVIDs: 3.6 cm EDV(Teich): 137.8 ml LVPWd: 0.90 cm ESV(Teich): 54.4 ml Ao root area: 16.0 cm2 EF(Teich): 60.6 % LA dimension: 2.2 cm LVOT diam: 2.2 cm LVOT area: 3.9 cm2 Doppler Measurements & Calculations MV E max shakeel: MV P1/2t max shakeel: Ao V2 max: AI max shakeel: 61.7 cm/sec 85.3 cm/sec 169.9 cm/sec 393.3 cm/sec MV A max shakeel: MV P1/2t: 51.5 msec Ao max PG: AI max P.8 cm/sec MVA(P1/2t): 4.3 cm2 11.5 mmHg 62.4 mmHg MV E/A: 0.69 MV dec slope: SHANI(V,D): 3.0 cm2 AI dec slope: 485.5 cm/sec2 255.7 cm/sec2 MV dec time: AI P1/2t: 0.22 sec 450.6 msec LV V1 max PG: TV V2 max: PA V2 max: PI end-d shakeel: 7.0 mmHg 219.1 cm/sec 84.9 cm/sec 104.9 cm/sec LV V1 max: TV max P.2 mmHgPA max P.7 cm/sec 2.9 mmHg Left Ventricle The left ventricle is normal in size. There is normal left ventricular wall thickness. LV EF is 65%. Left ventricular systolic function is normal. Doppler measurements suggest impaired left ventricular relaxation, which is associated with grade I/IV or mild diastolic dysfunction. The left ventricular wall motion is normal. There is no thrombus. Right Ventricle The right ventricle is not well visualized secondary to technical limitations. Atria RA grossly normal size. The left atrial size is normal. Mitral Valve There is mild mitral annular calcification. There is no evidence of mitral valve prolapse. There is no vegetation seen on the mitral valve. There is no mitral valve stenosis. There is no mitral regurgitation noted. Aortic Valve The aortic valve is mildly calcified. There is no aortic valvular vegetation. There is no aortic valve stenosis. There is no LVOT obstruction. There is a moderate amount of aortic regurgitation. Tricuspid Valve There is no tricuspid stenosis. There is a trace amount of tricuspid regurgitation. Right ventricular systolic pressure is normal. RVSP is 24 to 29 mm of Hg , with RA mean of 5 to 10. Pulmonic Valve There is no pulmonic valvular stenosis. There is a trace amount of pulmonic regurgitation. Great Vessels The aortic root is moderately dilated. Possible Aortic root aneurysm. The inferior vena cava appeared normal and decreased > 50% with respiration (RAP 5-10 mmHg). Effusions There is no pericardial effusion. : NATALYA MALAVE > Natalya Malave
[2017-08-25] MEDS: AMIODARONE HCL 200 MG TABLET PO SCH (11:13)
[2017-08-25] MEDS ORDERED: PROPOFOL INJ 200 MG/20 ML VIAL IV ONE (11:26)
[2017-08-25] MEDS ORDERED: FENTANYL CITRATE INJ/PF 100 MCG/2 ML AMPUL ONE ×3 (11:26)
[2017-08-25] MEDS ORDERED: LIDOCAINE 2% INJ-PF (20 MG/ML) 10 ML AMPUL ONE (11:26)
[2017-08-25] MEDS ORDERED: MIDAZOLAM 2 MG/2 ML INJ ONE (11:26)
[2017-08-25] MEDS ORDERED: ACETAMINOPHEN 1,000 MG/100 ML RTUPB IV ONE (11:27)
[2017-08-25] MEDS ORDERED: BUPIVACAINE HCL/DEX-WATER/PF 15 MG/2 ML AMPULE ONE (11:28)
--- NOTE | 2017-08-25 12:08 | Progress Note ---
Provider Note Provider Note: INITIAL NOTE. FORMAL CONSULT to follow. Date of this note is 08/25/17. The patient was interviewed and examined. Formal consult to follow-up. Impression 1. Right hip fracture for surgery. 2. Coronary artery disease, history of stent in unknown vessel. No anginal symptoms. 3. Hypertension. 4. Paroxysmal atrial fibrillation. Maintained in sinus rhythm on amiodarone. 5. History of COPD. At baseline. 6. Aortic regurgitation: Moderate by echo. 7. Aortic root/ascending thoracic aortic aneurysm. 8. History of lung cancer. Status post left lower lobectomy. 9. Tobacco Abuse Disorder. 10. Hyperlipidemia. 11. Preoperative cardiac risk assessment. 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 She would be an acceptable risk for this orthopedic surgical procedure. Would monitor the patient's rhythm intra-and postoperatively on telemetry. We will also get serial EKGs and cardiac enzymes. Continue amiodarone. Would recommend restarting the patient Eliquis as soon as feasible after surgery. Would also recommend a transfer to 3 N[address] or 3 W., 3 S[address] in case postoperatively the need arises for intravenous Cardizem, if the patient does go into atrial fibrillation. Discussed with the patient, and the patient's daughter and son. All questions answered. Discussed with Dr. CARTER. Discussed with Dr. Olmos. We will follow with you.
[2017-08-25] MEDS ORDERED: KETAMINE HCL INJ 500 MG/10 ML VIAL ONE (12:32)
[2017-08-25] MEDS ORDERED: MEPERIDINE HCL/PF INJ 25 MG/1 ML DISP.SYRIN IV PRN (12:36)
[2017-08-25] MEDS ORDERED: ONDANSETRON HCL INJ/PF 4 MG/2 ML SDV IV PRN ×2 (12:36→13:18)
[2017-08-25] MEDS ORDERED: PROMETHAZINE HCL INJ 25 MG/1 ML VIAL IV PRN ×2 (12:36)
[2017-08-25] MEDS ORDERED: FENTANYL CITRATE INJ/PF 100 MCG/2 ML AMPUL IV PRN ×3 (12:36)
[2017-08-25] MEDS ORDERED: DIPHENHYDRAMINE HCL 50 MG/ML VIAL IV PRN (12:36)
--- NOTE | 2017-08-25 12:53 | Operative Report ---
Operative Report DATE OF SURGERY: 08/25/17 PREOPERATIVE DIAGNOSIS: Right intratrochanteric femur fracture OPERATION: Open reduction internal fixation right intratrochanteric femur fracture SURGEON: ZOIE PINEDA ANESTHESIA: Spinal ESTIMATED BLOOD LOSS: 100 PROCEDURE: With the patient supine on the fracture table the right lower extremities manipulated under fluoroscopic guidance to affected an anatomic reduction of the proximal femoral fracture. Subsequently extremities prepped and draped in a sterile fashion. Pin was placed percutaneously through the greater trochanter down to the proximal femoral medullary canal. A combined reamers and used to open up proximal cortical opening. A ball-tipped guide sedrick was placed down the femoral canal femoral canal length measures 360 mm. The canal was then reamed using flexible reamers until a 12.5 mm millimeter reamer is passed. Subsequently [place] gamma 3 nail 11 mm by 360 mm x 125 is placed down over the ball-tipped guide sedrick to an appropriate depth for proximal interlock of 90 mm. A distal interlock of 55 mm is placed under fluoroscopic guidance freehand. The fracture reduction and the hardware to placement RSS fluoroscopically felt to be adequate. The wounds irrigated with bulb lavage and closed using Vicryl followed by isa. Sterile dressings are applied and the patient returned to PACU in satisfactory condition.
[2017-08-25] MEDS ORDERED: MORPHINE SULFATE 10 MG/ML INJ IV PRN (13:17)
--- NOTE | 2017-08-25 16:06 | RADIOLOGY REPORT (SQ) ---
EXAM DESCRIPTION: HIP IN OPERATING RM; NO CHG FLUORO COMPLETED DATE/TIME: 08/25/2017 3:18 pm REASON FOR STUDY: ORIF RT HIP ASST WITH FLUORO IN OR COMPARISON: RIGHT HIP FILMS 08/23/2017 FLUOROSCOPY TIME: 0.8 minutes 5 digital C-arm images images saved to PACS. TECHNIQUE: Intra-operative images acquired during surgical procedure to evaluate progress. NUMBER OF IMAGES: 5 digital C-arm images saved to pac's LIMITATIONS: None. FINDINGS: Intra procedural imaging and fluoro during ORIF right intertrochanteric proximal femoral f racture with long intramedullary nail. Good alignment at the fracture site. Please see the operativ e report for further details IMPRESSION: Intra procedural imaging and fluoro COMMENT: Quality ID [id number]: Final reports for procedures using fluoroscopy that document radiation exp osure indices, or exposure time and number of fluorographic images (if radiation exposure indices are not available) Please consult full operative report of the attending physician for description of the procedure. TECHNICAL DOCUMENTATION: JOB ID: [id number] [employer]- All Rights Reserved Reading location - IP/workstation name: [email or web address]
--- NOTE | 2017-08-25 16:06 | RADIOLOGY REPORT (SQ) ---
EXAM DESCRIPTION: HIP IN OPERATING RM; NO CHG FLUORO COMPLETED DATE/TIME: 08/25/2017 3:18 pm REASON FOR STUDY: ORIF RT HIP ASST WITH FLUORO IN OR COMPARISON: RIGHT HIP FILMS 08/23/2017 FLUOROSCOPY TIME: 0.8 minutes 5 digital C-arm images images saved to PACS. TECHNIQUE: Intra-operative images acquired during surgical procedure to evaluate progress. NUMBER OF IMAGES: 5 digital C-arm images saved to pac's LIMITATIONS: None. FINDINGS: Intra procedural imaging and fluoro during ORIF right intertrochanteric proximal femoral f racture with long intramedullary nail. Good alignment at the fracture site. Please see the operativ e report for further details IMPRESSION: Intra procedural imaging and fluoro COMMENT: Quality ID [id number]: Final reports for procedures using fluoroscopy that document radiation exp osure indices, or exposure time and number of fluorographic images (if radiation exposure indices are not available) Please consult full operative report of the attending physician for description of the procedure. TECHNICAL DOCUMENTATION: JOB ID: [id number] [employer]- All Rights Reserved Reading location - IP/workstation name: [email or web address]
[2017-08-25] MEDS: ASPIRIN 81 MG TABLET, ENT COATED PO SCH (16:29)
[2017-08-25] MEDS: FUROSEMIDE 40 MG TABLET PO SCH (16:30)
[2017-08-25] MEDS: CHOLECALCIFEROL (D3) 1,000 UNIT TABLET PO SCH (16:31)
--- NOTE | 2017-08-25 17:30 | PDOC PROGRESS REPORT ---
Subjective Progress Note for:: 08/25/17 Subjective:: No adverse events overnight. No new complaints. Her pain is been well controlled. She has remained in a sinus rhythm on the monitor. She is n.p.o. awaiting her procedure today. Reason For Visit: RIGHT FEMUR FRACTURE Physical Exam Vital Signs: Temp Pulse Resp BP Pulse Ox 98.4 F 70 16 125/36 L 91 L 08/25/17 15:15 08/25/17 15:15 08/25/17 15:15 08/25/17 15:15 08/25/17 15:15 Intake & Output 08/24/17 08/25/17 08/26/17 06:59 06:59 06:59 Intake Total 237 1655 1280 Output Total 650 1350 500 Balance -413 305 780 Weight 66.3 kg 77.7 kg General appearance: PRESENT: no acute distress, obese, well-developed Respiratory exam: PRESENT: clear to auscultation chava. ABSENT: rales, rhonchi, wheezes Cardiovascular exam: PRESENT: diastolic murmur, RRR. ABSENT: rubs, systolic murmur Vascular exam: PRESENT: normal capillary refill GI/Abdominal exam: PRESENT: normal bowel sounds, soft. ABSENT: distended, guarding, mass, organolmegaly, rebound, tenderness Extremities exam: ABSENT: clubbing, pedal edema Musculoskeletal exam: PRESENT: deformity - Right lower extremity is externally rotated and shortened Neurological exam: PRESENT: alert, awake, oriented to person, oriented to place , oriented to time Results Laboratory Results: 08/25/17 04:38 08/25/17 04:38 08/25/17 08/25/17 04:38 04:38 WBC 10.5 RBC 3.59 L Hgb 10.2 L Hct 30.5 L MCV 85 MCH 28.4 MCHC 33.4 RDW 20.1 H Plt Count 156 Sodium 133.2 L Potassium 4.1 Chloride 100 Carbon Dioxide 28 Anion Gap 5 BUN 12 Creatinine 1.00 Est GFR ( Amer) > 60 Est GFR (Non-Af Amer) 53 L Glucose 103 Calcium 8.0 L Impressions: Hip/Pelvis X-Ray 08/23/17 12:08 IMPRESSION: Acute comminuted right intertrochanteric proximal femoral fracture with mild varus angulation. Chest X-Ray 08/23/17 13:29 IMPRESSION: HEART ENLARGED WITHOUT FAILURE. NO OTHER SIGNIFICANT RADIOGRAPHIC FINDING IN THE CHEST. Lumbar Spine X-Ray 08/23/17 13:33 IMPRESSION: Severe osteopenia. Diffuse degenerative disc disease. Fluoroscopy 08/25/17 00:00 IMPRESSION: Intra procedural imaging and fluoro Hip X-Ray 08/25/17 00:00 IMPRESSION: Intra procedural imaging and fluoro Assessment & Plan - Diagnosis (1) COPD (chronic obstructive pulmonary disease) Qualifiers: COPD type: unspecified COPD Qualified Code(s): J44.9 - Chronic obstructive pulmonary disease, unspecified Is this a current diagnosis for this admission?: Yes Plan: Not acutely exacerbated. Continue home medications. (2) Chronic atrial fibrillation Is this a current diagnosis for this admission?: Yes Plan: Currently normal sinus rhythm. Her Eliquis will be held for a couple days prior to surgery. (3) Closed right hip fracture Qualifiers: Encounter type: initial encounter Qualified Code(s): S72.001A - Fracture of unspecified part of neck of right femur, initial encounter for closed fracture Is this a current diagnosis for this admission?: Yes Plan: Surgery been consulted. She is pending ORIF today.
[2017-08-25] MEDS: CEFAZOLIN 2 GM/D5W RTU 2 GM/50 ML RTUPB IV SCH (18:24)
[2017-08-25] MEDS: SIMVASTATIN 40 MG TABLET PO SCH (21:43)
[2017-08-25] MEDS: OXYCODONE HCL IR 5 MG TABLET PO PRN (21:45)
--- NOTE | 2017-08-26 00:21 | CONSULTATION REPORT E ---
Consultation Report NAME: NILES KRUEGER : 1935 AGE: 82Y DATE: 08/25/2017 ROOM: 334 A TO: NATALYA MALAVE M.D. FROM: JOVAN EVERETT M.D. Requesting Physician Note that the patient was seen around 9 a.m. this morning and a preliminary note already has been placed on the chart. This is the formal consultation. REASON FOR CONSULTATION: The patient with history of paroxysmal atrial fibrillation, heart murmur, and hypertension for preoperative cardiac risk assessment for right hip surgery. HISTORY OF PRESENT ILLNESS: The patient is an 82-year-old female who states that she lost her balance and fell and subsequently had pain in the right hip and was found to have fracture of the right femur and is for surgical repair of the same. The patient has a history of lung cancer that was resected in April, in which she had a left lower lobe lobectomy and at that time the patient went into atrial fibrillation. Without cardioversion she converted to sinus on amiodarone and she has been maintained in sinus on amiodarone. She is also on Eliquis for that which has been stopped for this surgery. The patient also has a history of hypertension. She also states that she has a leaky main valve (aortic regurgitation) and thoracic aortic aneurysm. These are being followed by a wood turner and she states that she was told it is not time for replacement or/repair of the aortic valve/thoracic aorta. She also has history of COPD and she continues to smoke. She denies any palpitations. There is no syncope. There is no dizziness, presyncope, or syncope. There is no leg edema. There is no PND, orthopnea. There are no anginal symptoms. She states she had a history of coronary artery disease and had a stent placed some years ago. She states she did not have an WA, but had shortness of breath which later led to cardiac catheterization with stent placement. She does not know the exact vessel. PAST MEDICAL HISTORY: Positive for history of paroxysmal atrial fibrillation as mentioned earlier. History of lung cancer, status post lobectomy. The patient states it is cured. She also has a COPD, she continues to smoke. She has a history of hypertension, paroxysmal atrial fibrillation as mentioned earlier. There is no history of coronary artery disease with stent placement with no history of WA. She has no anginal symptoms. There is no congestive heart failure. There is no recurrence of atrial fibrillation on amiodarone. She also has no TIA or CVA and no bleeding complication on Eliquis. There is no history of diabetes mellitus. No history of thyroid disease. There is no history of TIA or CVA. There is no history of seizures. There is no history of chronic kidney disease. PAST SURGICAL HISTORY: Positive for left lower lobectomy of the lung for lung cancer, cholecystectomy, hysterectomy, cardiac catheterization and stent placement. SOCIAL HISTORY: The patient is a smoker. There is no history of EtOH abuse. FAMILY HISTORY: Positive for hypertension and coronary artery disease. ALLERGIES: The patient is allergic to SULFA. ADVANCE DIRECTIVES: The patient is a full code. Her daughter and her son are her surrogate healthcare decision makers. REVIEW OF SYSTEMS: CONSTITUTIONAL: Denies any fever, chills, or rigors. HEAD: Denies headaches or head injury. EYES: No history of amblyopia or diplopia. No history of amaurosis fugax. EARS: No history of hearing loss. No history of tinnitus. No history of recurrent ear infections. NOSE: No history of nasal polyps. No history of nosebleeds. MOUTH: No history of altered taste sensation. No ulcers in the mouth. No bleeding from the gums. THROAT: No odynophagia or dysphagia. No recurrent sore throats. SKIN: No pruritus. No yellowish discoloration of the skin. No psoriasis. No eczema. LUNGS: History of COPD, no acute exacerbation of COPD. No recent wheezing, coughing, or symptoms of upper respiratory tract infection or lower respiratory tract infection. No history of pulmonary embolism. No history of sleep apnea. No history of hemoptysis. No history of pleuritic chest pain. CARDIAC: History of hypertension, well-controlled as per patient. History of thoracic aortic aneurysm. History of aortic regurgitation as mentioned earlier. History of coronary artery disease with a stent in an unknown vessel with no history of WA. No anginal symptoms. No history of PND, orthopnea, or leg edema. No history of palpitations, cardiac arrhythmia. No history of ventricular arrhythmia. The patient has a history of paroxysmal atrial fibrillation converted to sinus and maintained in sinus on amiodarone. She is also on Eliquis. There is no leg edema. There is no history of congestive heart failure. RENAL: The patient claims she has no chronic kidney disease, but looking at the chart the patient has CKD stage 3. There are no symptoms of UTI. No hematuria, pyuria, or dysuria. MUSCULOSKELETAL: Denies arthritis or collagen vascular disease. ENDOCRINE: No history of diabetes mellitus. No history of thyroid disease. No history of polydipsia or polyuria. No history of heat or cold intolerance. GASTROINTESTINAL: History of GERD present. No history of GI bleed. No history of fatty food intolerance. No history of hepatitis. No history of cirrhosis. No history of abdominal pain. No altered bowel movements or history of GI bleed. Appetite is good. CENTRAL NERVOUS SYSTEM: No history of TIA or CVA. No history of headaches, migraines, or seizures. No gait imbalance, although she did lose her balance which led to her right hip injury. PSYCHIATRIC: No history of anxiety or depression. No history of suicidal ideation. No history of homicidal ideation. MUSCULOSKELETAL: No history of arthritis or collagen vascular disease. METABOLIC: She has no gout. She has hyperlipidemia. There is no history of obesity. PHYSICAL EXAMINATION: GENERAL: On examination the patient is mildly overweight. She is well-groomed, at present in no acute distress. VITAL SIGNS: She is afebrile with a temperature of 98.3 degrees Fahrenheit, pulse of 70 beats per minute, blood pressure is 130/40, respirations are 20 per minute, O2 saturations are 98% on 3 liters nasal cannula. HEENT: Head is atraumatic, normocephalic. Eyes: Pupils are equal, round and regular, reactive to light and accommodation. Extraocular movements are normal. There is no conjunctival pallor. There is no scleral icterus. Ears: Tympanic membranes are intact, external auditory canals are clear. Nose: There is no deviated nasal septum. There is no inflammation of the nasal mucous membrane. Mouth: Mucous membranes of the mouth are moist. Tongue is moist. There are no ulcers. There is no bleeding from the gums. Throat: There is no redness of the oropharynx. There are no exudates. SKIN: There is no skin rashes. There are no skin lesions. There is no petechiae or ecchymosis. NECK: Supple. There is no JVD. There is no lymphadenopathy. There is no goiter. Carotids are equal. There is no bruit. There is no carotid delay. Trachea is central. LUNGS: Show diminished air entry, prolonged expiration without any rhonchi, rales, or wheezing. There is no chest wall tenderness. HEART: S1, S2 is heard. There is no S3 gallop. There is no S4 gallop. There is a systolic murmur in the left sternal border and the apex. There is a I/ diastolic murmur of aortic regurgitation present. There are no peripheral signs of aortic regurgitation. There is no rub. There are no gallops. ABDOMEN: Soft, nontender. There is no hepatosplenomegaly. Bowel sounds are well heard. There are no tender areas or masses. There is no rebound, guarding, or rigidity. EXTREMITIES: Femorals are slightly diminished. Leg pulses are slightly diminished. There are no femoral bruits. There is no pedal edema. There is no DVT or cellulitis. There is no calf tenderness. CENTRAL NERVOUS SYSTEM: The patient is conscious, awake, alert and oriented x3 with no focal deficits. PSYCHIATRIC: The patient's judgment and insight are intact. Her affect is normal. The patient does not appear to be agitated. MEDICATIONS: 1. Amiodarone 200 mg p.o. daily. 2. Aspirin 81 mg p.o. daily. 3. *------* 10 mg per rectally daily p.r.n. 4. Cefazolin 2 grams in 50 mL IV q.8 hours. 5. Vitamin D 2000 units p.o. daily. 6. Lovenox 40 mg subcutaneously daily. 7. Lasix 40 mg p.o. q.a.m. 8. Morphine sulfate 1 mg IV q.6 hours p.r.n. 9. Zofran 4 mg IV q.6 hours p.r.n. 10. Oxycodone 5 mg p.o. q.6 hours p.r.n. 11. Prochlorperazine 10 mg IV q.6 hours p.r.n. 12. Lactate ringer solution at 150 mL per hour. 13. Simvastatin 20 mg at bedtime. DIAGNOSTICS: The patient's chest x-ray shows cardiomegaly without failure. No other significant abnormality. The patient's hip, pelvis x-ray shows acute comminuted right intertrochanteric proximal femoral fracture with mild varus angulation. The patient's EKG is sinus rhythm, multiple APCs, left ventricular hypertrophy, possible inferior WA old. The patient's EKG subsequently shows sinus rhythm, it is a defective EKG, left ventricular hypertrophy, inferior infarct old, borderline prolonged QT interval, V3 lead placement error. The patient's echocardiogram shows left ventricle is of normal size, there is normal left ventricular wall thickness. LV ejection fraction is 65%. Left ventricular systolic function is normal. There is a grade 1/4 mild diastolic dysfunction. Left ventricular wall motion is normal. There is no evidence of mitral valve prolapse. There is no mitral regurgitation. There is no mitral valve stenosis. There is no aortic valvular vegetation. The aortic valve is mildly calcified without any stenosis. There is a moderate amount of aortic regurgitation. There is a trace amount of tricuspid regurgitation. Right ventricular systolic pressure is 24-29 mmHg without a mean of *------*. 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 The patient's white count is 10,500; hemoglobin is 10.2; hematocrit is 30.5; platelet count is 156,000. The patient's sodium is 133.2, potassium 4.1, chloride 100, CO2 is 28. The patient's BUN is 12, creatinine is 1.0, GFR is reduced at 53 mL, which is chronic kidney disease stage 3A. Her glucose is 103. Her calcium is 8.0. IMPRESSION: 1. Right hip fracture for surgery. 2. Coronary artery disease, history of stent in unknown vessel. No anginal symptoms. ? Old inferior wall WA. 3. Hypertension, well-controlled. 4. Paroxysmal atrial fibrillation, maintained in sinus rhythm on amiodarone. 5. History of COPD, at baseline. No acute exacerbation. 6. Moderate aortic regurgitation by echo. 7. Aortic root/ascending thoracic aortic aneurysm. 8. History of lung cancer, status post left lower lobectomy. 9. Tobacco abuse disorder. 10. Hyperlipidemia. 11. Chronic kidney disease stage 3A, most likely. 12. Preoperative cardiac risk assessment. RECOMMENDATIONS: As mentioned earlier cardiac-tanner the patient is stable. She will be an acceptable risk for orthopedic surgical procedure. Would monitor the patient's rhythm intra- and post-operatively on telemetry. Would also get serial EKGs and cardiac enzymes. Continue amiodarone. Would recommend restarting the patient's Eliquis as soon as feasible after surgery. If the patient goes back into atrial fibrillation then would start the patient on IV Cardizem. TIME SPENT: Note the patient was seen at 9 a.m. with 60 minutes spent on this patient with more than 50% of the time spent on direct patient care. Discussed with the patient and patient's family, including the patient's son and daughter. All questions answered. Her medications have been reviewed and medications and doses have been recommended. Discussed with Dr. Freedman the orthopedic surgeon. Discussed with the hospitalist. Discussed with the patient. Medical decision making is of high complexity. We will follow the patient postoperatively. We will follow with you. DICTATING PHYSICIAN: NATALYA MALAVE M.D. [id number] GHULAM#: [id number] ID: [id number] JOB#: [id number] ACCT: [id number] cc:NATALYA MALAVE M.D. >
[2017-08-26] MEDS: RINGERS SOLUTION,LACTATED 1,000 ML IV PRN (00:45)
[2017-08-26] MEDS: CEFAZOLIN 2 GM/D5W RTU 2 GM/50 ML RTUPB IV SCH (02:14)
[2017-08-26 06:36] LABS: HEMATOCRIT 26.6 % (36.0-47.0); HEMOGLOBIN 8.9 g/dL (12.0-15.5); MEAN CORPUSCULAR HEMOGLOBIN 28.5 pg (27.0-33.4); MEAN CORPUSCULAR HGB CONC 33.6 g/dL (32.0-36.0); MEAN CORPUSCULAR VOLUME 85 fl (80-97); PLATELET COUNT 140 10^3/uL (150-450); RED BLOOD COUNT 3.14 10^6/uL (3.72-5.28); RED CELL DISTRIBUTION WIDTH 19.8 % (11.5-14.0); WHITE BLOOD COUNT 11.8 10^3/uL (4.0-10.5)
[2017-08-26 06:58] LABS: ANION GAP 6 (5-19); BLOOD UREA NITROGEN 15 mg/dL (7-20); CALCIUM 7.6 mg/dL (8.4-10.2); CARBON DIOXIDE 26 mmol/L (22-30); CHLORIDE 100 mmol/L (98-107); GLUCOSE 113 mg/dL (75-110); POTASSIUM 3.9 mmol/L (3.6-5.0); SODIUM 132.3 mmol/L (137-145)
[2017-08-26 07:15] LABS: FREE T3 2.02 pg/mL (2.77-5.27); FREE T4 (FREE THYROXINE) 1.59 ng/dL (0.78-2.19)
[2017-08-26 07:28] LABS: THYROID STIMULATING HORMONE 5.89 uIU/mL (0.47-4.68)
--- NOTE | 2017-08-26 07:47 | PDOC PROGRESS REPORT ---
Subjective Progress Note for:: 08/26/17 Reason For Visit: RIGHT FEMUR FRACTURE 82-year-old white female postop day 1 status post open reduction internal fixation of right intratrochanteric femur fracture. Patient alert oriented and appropriate. Patient complaining of some thigh pain. Was not seen by physical therapy yesterday. Has not been out of bed. Physical Exam Vital Signs: Temp Pulse Resp BP Pulse Ox 36.9 C 79 16 125/36 L 91 L 08/25/17 15:15 08/26/17 02:00 08/25/17 15:15 08/25/17 15:15 08/25/17 15:15 Intake & Output 08/25/17 08/26/17 08/27/17 06:59 06:59 06:59 Intake Total 1655 3555 Output Total 1350 500 Balance 305 3055 Weight 77.7 kg 79.3 kg General appearance: PRESENT: no acute distress, mild distress Head exam: PRESENT: normocephalic Respiratory exam: PRESENT: unlabored Cardiovascular exam: PRESENT: RRR Pulses: PRESENT: +1 pedal pulses bilateral Vascular exam: PRESENT: normal capillary refill GI/Abdominal exam: PRESENT: soft Rectal exam: PRESENT: deferred Extremities exam: PRESENT: other - Right lower extremity dressings 3 clean dry and intact. Leg lengths are equal. Distal neurovascular examination is intact. Neurological exam: PRESENT: alert, awake, oriented to person, oriented to place , oriented to time, oriented to situation. ABSENT: motor sensory deficit Psychiatric exam: PRESENT: appropriate affect, normal mood. ABSENT: homicidal ideation, suicidal ideation Skin exam: PRESENT: dry, intact, warm. ABSENT: cyanosis, rash Results Laboratory Results: 08/26/17 05:57 08/26/17 05:57 08/26/17 08/26/17 08/26/17 05:57 05:57 05:57 WBC 11.8 H RBC 3.14 L Hgb 8.9 L Hct 26.6 L MCV 85 MCH 28.5 MCHC 33.6 RDW 19.8 H Plt Count 140 L Sodium 132.3 L Potassium 3.9 Chloride 100 Carbon Dioxide 26 Anion Gap 6 BUN 15 Creatinine 0.86 Est GFR ( Amer) > 60 Est GFR (Non-Af Amer) > 60 Glucose 113 H Calcium 7.6 L TSH 5.89 H Free T4 1.59 Free T3 pg/mL 2.02 L 08/26/17 05:57 Troponin I 0.014 Impressions: Hip/Pelvis X-Ray 08/23/17 12:08 IMPRESSION: Acute comminuted right intertrochanteric proximal femoral fracture with mild varus angulation. Chest X-Ray 08/23/17 13:29 IMPRESSION: HEART ENLARGED WITHOUT FAILURE. NO OTHER SIGNIFICANT RADIOGRAPHIC FINDING IN THE CHEST. Lumbar Spine X-Ray 08/23/17 13:33 IMPRESSION: Severe osteopenia. Diffuse degenerative disc disease. Fluoroscopy 08/25/17 00:00 IMPRESSION: Intra procedural imaging and fluoro Hip X-Ray 08/25/17 00:00 IMPRESSION: Intra procedural imaging and fluoro Status: Imported from PACS Assessment & Plan - Diagnosis (1) Closed right hip fracture Qualifiers: Encounter type: initial encounter Qualified Code(s): S72.001A - Fracture of unspecified part of neck of right femur, initial encounter for closed fracture Is this a current diagnosis for this admission?: Yes Plan: 82-year-old white female postop day 1 status post ORIF of right intratrochanteric femur fracture. Patient be mobilized with physical therapy and weightbearing as tolerated basis. Discharge goals will be determined by her functional status. - Time Time Spent with patient: 15-24 minutes Anticipated discharge: Other Within: Other
[2017-08-26] MEDS: FUROSEMIDE 40 MG TABLET PO SCH (08:29)
[2017-08-26] MEDS: OXYCODONE HCL IR 5 MG TABLET PO PRN ×3 (08:29→23:25)
--- NOTE | 2017-08-26 09:07 | EKG REPORT ---
SEVERITY:- ABNORMAL ECG - SINUS RHYTHM WITH PACS INFERIOR INFARCT, OLD NONSPECIFIC T ABNORMALITIES, ANT-LAT LEADS BORDERLINE PROLONGED QT INTERVAL : Confirmed by: Cody López MD 26-Aug-2017 09:06:51
[2017-08-26] MEDS: CHOLECALCIFEROL (D3) 1,000 UNIT TABLET PO SCH (10:18)
[2017-08-26] MEDS: ASPIRIN 81 MG TABLET, ENT COATED PO SCH (10:18)
[2017-08-26] MEDS: AMIODARONE HCL 200 MG TABLET PO SCH (10:18)
[2017-08-26] MEDS ORDERED: APIXABAN 5 MG TABLET PO ONE (12:00)
--- NOTE | 2017-08-26 15:30 | PROGRESS NOTE E ---
Progress Note NAME: NILES KRUEGER : 1935 AGE: 82Y DATE: 08/26/2017 ROOM: 334 SUBJECTIVE: The patient denies any chest pain or discomfort. There is no PND or orthopnea. There is no recurrence of atrial fibrillation. Patient remains in sinus rhythm. There are no anginal symptoms. There is no PND, orthopnea or leg edema. There are no arrhythmias seen on the monitor. OBJECTIVE: GENERAL: On examination, the patient is mildly overweight. She is well-groomed, in no acute distress. VITAL SIGNS: She is afebrile, with a temperature of 98.6 degrees Fahrenheit, pulse of 74 beats per minute, blood pressure 126/35, respirations of 16 per minute. O2 sats are 96% on 3 liters nasal cannula. HEENT: Head is atraumatic, normocephalic. Eyes: Pupils are equal, round, regular, react to light and accommodation. Extraocular movements are normal. There is mild conjunctival pallor present. There is no scleral icterus. ENT is negative. NECK: Supple. There is no JVD. Carotids are equal. There is no bruit. There is no transmitted murmur from the aortic area over the carotids. There is no carotid delay. There is no lymphadenopathy. There is no goiter. Trachea is central. LUNGS: With diminished air entry, prolonged expiration, without any rhonchi, rales or wheezing. On percussion, there is hyperresonance. There is no chest wall tenderness. HEART: S1, S2 are heard. S1 is of normal intensity. There is no S3 gallop. There is no S4 gallop. There is a systolic murmur at the left sternal border, at the apex. There is a 1 x 6 diastolic murmur of aortic insufficiency present. There is no gallop. There is no rub. ABDOMEN: Soft, nontender. There is no hepatosplenomegaly. Bowel sounds are well-heard. There are no tender areas or masses. EXTREMITIES: Femorals are slightly diminished. Leg pulses are slightly diminished. There is no pedal edema. There is no DVT or cellulitis. There is no calf tenderness. Right hip dressing is dry and clean. APPELLATE COURT JUDGE: The patient is conscious, awake, alert, oriented x3, with no focal deficits. PSYCHIATRIC: Patient's judgment and insight are intact. Her affect is normal. The patient is not agitated. DIAGNOSTICS: The patient's EKG shows sinus rhythm with nonspecific T inversion in the V1, V2. The patient's white count is 11,800, hemoglobin is 8.9, hematocrit is 26.6, platelet count is 140,000. The patient's sodium is 132.3, potassium is 3.9, chloride 100, CO2 is 26. The patient's BUN is 15, creatinine is 0.86 and GFR is now back to normal at 60. Glucose is 113. Calcium is 76. The patient's troponin I is negative at 0.014. The patient's TSH is slightly elevated at 5.89. Free T3 is 2.02 and free T4 is 1.59. IMPRESSION: 1. RIGHT HIP FRACTURE, STATUS POST SURGERY, STABLE. 2. CORONARY ARTERY DISEASE. HISTORY OF STENT IN THE RIGHT CORONARY ARTERY PER RECORDS. The patient has no anginal symptoms. There is suggestion of an old inferior wall MN by EKG. 3. HYPERTENSION, WELL-CONTROLLED. 4. ANEMIA, MOST LIKELY SECONDARY TO A HIP FRACTURE CAUSING BLOOD LOSS INTO THE HIP. 5. PAROXYSMAL ATRIAL FIBRILLATION, IN SINUS RHYTHM ON AMIODARONE. 6. HYPOTHYROIDISM, BUT BEFORE STARTING SYNTHROID. Will recheck the patient's TSH and free T3 in the morning prior to instituting replacement thyroid therapy. 7. HISTORY OF COPD, AT PRESENT AT BASELINE. No acute exacerbation. 8. AORTIC ROOT/ASCENDING THORACIC AORTIC ANEURYSM. 9. MODERATE AORTIC REGURGITATION BY ECHO. 10. HISTORY OF LUNG CANCER, STATUS POST LEFT LOWER LOBECTOMY. 11. TOBACCO ABUSE DISORDER. 12. CHRONIC KIDNEY DISEASE, STAGE III MOST LIKELY. RECOMMENDATIONS: Will watch the patient's hemoglobin. Will recheck the patient's thyroid function. Continue the patient on amiodarone, and will restart the patient's Eliquis, as this was recommended by Dr. Freedman, who decided today to restart the patient on Eliquis at 5 mg p.o. t.i.d. Will recheck the patient's EKG and cardiac enzymes in the a.m. Will recheck the patient's TSH and free T3 in the morning, as mentioned earlier. Note, medications have been reviewed and medications adjusted. Note, 40 minutes spent on the patient, with more than 50% of the time spent on direct patient care. EKG and lab values, including troponin I, were discussed with the patient. Will follow with you. Will also recheck the patient's hemoglobin in the morning. Medical decision-making is of moderate complexity. Thank you. DICTATING PHYSICIAN: NATALYA MALAVE M.D. [id number] PHY#: [id number] ID: [id number] JOB#: [id number] ACCT: [id number] cc: >
--- NOTE | 2017-08-26 15:34 | PDOC PROGRESS REPORT ---
Subjective Progress Note for:: 08/26/17 Subjective:: Patient was admitted with fracture of the right femur and she is status post ORIF. Patient also has chronic atrial fibrillation although she is currently in sinus rhythm. She really denies any complaints at this time. She will need physical therapy and plan is for long-term facility when she is medically stable for discharge Reason For Visit: RIGHT FEMUR FRACTURE Physical Exam Vital Signs: Temp Pulse Resp BP Pulse Ox 98.6 F 74 16 126/35 H 96 08/26/17 12:00 08/26/17 12:00 08/26/17 12:00 08/26/17 12:00 08/26/17 12:00 Intake & Output 08/25/17 08/26/17 08/27/17 06:59 06:59 06:59 Intake Total 1655 3555 Output Total 1350 500 Balance 305 3055 Weight 77.7 kg 79.3 kg General appearance: PRESENT: no acute distress, well-developed, well-nourished Head exam: PRESENT: atraumatic, normocephalic Eye exam: PRESENT: conjunctiva pink, EOMI, PERRLA. ABSENT: scleral icterus Mouth exam: PRESENT: moist, tongue midline Neck exam: ABSENT: carotid bruit, JVD, lymphadenopathy, thyromegaly Respiratory exam: PRESENT: clear to auscultation chava. ABSENT: rales, rhonchi, wheezes Cardiovascular exam: PRESENT: RRR. ABSENT: diastolic murmur, rubs, systolic murmur Pulses: PRESENT: normal dorsalis pedis pul Vascular exam: PRESENT: normal capillary refill GI/Abdominal exam: PRESENT: normal bowel sounds, soft. ABSENT: distended, guarding, mass, organolmegaly, rebound, tenderness Rectal exam: PRESENT: deferred Extremities exam: PRESENT: other - R incision site clean, minimal swelling, no discharges. ABSENT: calf tenderness, clubbing, pedal edema Neurological exam: PRESENT: alert, awake, oriented to person, oriented to place , oriented to time, oriented to situation, CN II-XII grossly intact. ABSENT: motor sensory deficit Psychiatric exam: PRESENT: appropriate affect, normal mood. ABSENT: homicidal ideation, suicidal ideation Skin exam: PRESENT: dry, intact, warm. ABSENT: cyanosis, rash Results Laboratory Results: 08/26/17 05:57 08/26/17 05:57 08/26/17 08/26/17 08/26/17 05:57 05:57 05:57 WBC 11.8 H RBC 3.14 L Hgb 8.9 L Hct 26.6 L MCV 85 MCH 28.5 MCHC 33.6 RDW 19.8 H Plt Count 140 L Sodium 132.3 L Potassium 3.9 Chloride 100 Carbon Dioxide 26 Anion Gap 6 BUN 15 Creatinine 0.86 Est GFR ( Amer) > 60 Est GFR (Non-Af Amer) > 60 Glucose 113 H Calcium 7.6 L TSH 5.89 H Free T4 1.59 Free T3 pg/mL 2.02 L 08/26/17 05:57 Troponin I 0.014 Impressions: Hip/Pelvis X-Ray 08/23/17 12:08 IMPRESSION: Acute comminuted right intertrochanteric proximal femoral fracture with mild varus angulation. Chest X-Ray 08/23/17 13:29 IMPRESSION: HEART ENLARGED WITHOUT FAILURE. NO OTHER SIGNIFICANT RADIOGRAPHIC FINDING IN THE CHEST. Lumbar Spine X-Ray 08/23/17 13:33 IMPRESSION: Severe osteopenia. Diffuse degenerative disc disease. Fluoroscopy 08/25/17 00:00 IMPRESSION: Intra procedural imaging and fluoro Hip X-Ray 08/25/17 00:00 IMPRESSION: Intra procedural imaging and fluoro Assessment & Plan - Diagnosis (1) Chronic atrial fibrillation Is this a current diagnosis for this admission?: Yes Plan: Currently in sinus rhythm. Anticoagulants will be restarted (2) Closed right hip fracture Qualifiers: Encounter type: initial encounter Qualified Code(s): S72.001A - Fracture of unspecified part of neck of right femur, initial encounter for closed fracture Is this a current diagnosis for this admission?: Yes Plan: D1 status post ORIF. She likely will need rehab at discharge (3) COPD (chronic obstructive pulmonary disease) Qualifiers: COPD type: unspecified COPD Qualified Code(s): J44.9 - Chronic obstructive pulmonary disease, unspecified Is this a current diagnosis for this admission?: Yes - Time Time Spent with patient: 15-24 minutes Medications reviewed and adjusted accordingly: Yes Anticipated discharge: Acute Rehab Within: within 48 hours - Inpatient Certification Based on my medical assessment, after consideration of the patient's comorbidities, presenting symptoms, or acuity I expect that the services needed warrant INPATIENT care.: Yes Medical Necessity: Risk of Complication if Not Cared For in Hospital
[2017-08-26] MEDS ORDERED: LACTULOSE SYRUP 20 GM/30 ML UDCUP PO PRN (15:35)
--- NOTE | 2017-08-26 15:39 | Progress Note ---
Provider Note Provider Note: Thyroid function noted with slightly elevated TSH is low T3 but normal T4. There is no prior history of hypothyroidism.
[2017-08-26] MEDS: DOCUSATE SODIUM 100 MG CAPSULE PO SCH (17:33)
[2017-08-26] MEDS: APIXABAN 5 MG TABLET PO SCH (21:58)
[2017-08-26] MEDS: SIMVASTATIN 40 MG TABLET PO SCH (21:58)
[2017-08-27 06:27] LABS: ABSOLUTE BASOPHILS # (AUTO) 0.1 10^3/uL (0.0-0.2); ABSOLUTE EOSINOPHILS # (AUTO) 0.4 10^3/uL (0.0-0.6); ABSOLUTE LYMPHOCYTES (AUTO) 0.8 10^3/uL (0.5-4.7); ABSOLUTE MONOCYTES (AUTO) 0.9 10^3/uL (0.1-1.4); ABSOLUTE NEUT (AUTO) 6.7 10^3/uL (1.7-8.2); BASOPHILS % (AUTO) 0.7 % (0-2); EOSINOPHILS % (AUTO) 4.5 % (0-6); HEMATOCRIT 23.4 % (36.0-47.0); LYMPHOCYTES % (AUTO) 8.8 % (13-45); MEAN CORPUSCULAR HGB CONC 34.3 g/dL (32.0-36.0); MEAN CORPUSCULAR VOLUME 85 fl (80-97); MONOCYTES % (AUTO) 10.3 % (3-13); PLATELET COUNT 129 10^3/uL (150-450); RED BLOOD COUNT 2.77 10^6/uL (3.72-5.28); RED CELL DISTRIBUTION WIDTH 19.1 % (11.5-14.0); SEGMENTED NEUTROPHILS % (AUTO) 75.7 % (42-78); TOTAL CELLS COUNTED % (AUTO) 100 %; WHITE BLOOD COUNT 8.9 10^3/uL (4.0-10.5)
--- NOTE | 2017-08-27 06:39 | PDOC PROGRESS REPORT ---
Subjective Progress Note for:: 08/27/17 Reason For Visit: RIGHT FEMUR FRACTURE 82-year-old white female postop day 2 status post open reduction internal fixation right proximal femur fracture. Patient with continued complaints of thigh pain and limited progress with physical therapy. Physical Exam Vital Signs: Temp Pulse Resp BP Pulse Ox 37.2 C 75 19 119/35 L 92 08/27/17 03:32 08/27/17 03:32 08/27/17 03:32 08/27/17 03:32 08/27/17 03:32 Intake & Output 08/25/17 08/26/17 08/27/17 06:59 06:59 06:59 Intake Total 1655 3555 1069 Output Total 1350 500 400 Balance 305 3055 669 Weight 77.7 kg 79.3 kg 79 kg General appearance: PRESENT: no acute distress, mild distress Respiratory exam: PRESENT: unlabored Cardiovascular exam: PRESENT: RRR Pulses: PRESENT: +1 pedal pulses bilateral Vascular exam: PRESENT: normal capillary refill GI/Abdominal exam: PRESENT: soft Rectal exam: PRESENT: deferred Extremities exam: PRESENT: other - Right lower extremity dressings clean dry and intact. Leg length is equal. Distal neurovascular examination is intact. Results Laboratory Results: 08/26/17 08/26/17 08/26/17 05:57 05:57 05:57 WBC 11.8 H RBC 3.14 L Hgb 8.9 L Hct 26.6 L MCV 85 MCH 28.5 MCHC 33.6 RDW 19.8 H Plt Count 140 L Sodium 132.3 L Potassium 3.9 Chloride 100 Carbon Dioxide 26 Anion Gap 6 BUN 15 Creatinine 0.86 Est GFR ( Amer) > 60 Est GFR (Non-Af Amer) > 60 Glucose 113 H Calcium 7.6 L TSH 5.89 H Free T4 1.59 Free T3 pg/mL 2.02 L 08/26/17 05:57 Troponin I 0.014 Impressions: Hip/Pelvis X-Ray 08/23/17 12:08 IMPRESSION: Acute comminuted right intertrochanteric proximal femoral fracture with mild varus angulation. Chest X-Ray 08/23/17 13:29 IMPRESSION: HEART ENLARGED WITHOUT FAILURE. NO OTHER SIGNIFICANT RADIOGRAPHIC FINDING IN THE CHEST. Lumbar Spine X-Ray 08/23/17 13:33 IMPRESSION: Severe osteopenia. Diffuse degenerative disc disease. Fluoroscopy 08/25/17 00:00 IMPRESSION: Intra procedural imaging and fluoro Hip X-Ray 08/25/17 00:00 IMPRESSION: Intra procedural imaging and fluoro Status: Imported from PACS Assessment & Plan - Diagnosis (1) Closed right hip fracture Qualifiers: Encounter type: initial encounter Qualified Code(s): S72.001A - Fracture of unspecified part of neck of right femur, initial encounter for closed fracture Is this a current diagnosis for this admission?: Yes Plan: Mobilized with physical therapy and weightbearing as tolerated basis. Anticipate the need for intermediate facility placement. - Time Time Spent with patient: 15-24 minutes Anticipated discharge: SNF Within: when bed available
[2017-08-27 06:40] LABS: BLOOD UREA NITROGEN 14 mg/dL (7-20); CALCIUM 7.5 mg/dL (8.4-10.2); GLUCOSE 101 mg/dL (75-110); POTASSIUM 3.7 mmol/L (3.6-5.0)
[2017-08-27 06:46] LABS: CARBON DIOXIDE 28 mmol/L (22-30); CHLORIDE 100 mmol/L (98-107); SODIUM 132.4 mmol/L (137-145)
[2017-08-27 06:52] LABS: ANION GAP 4 (5-19)
[2017-08-27 06:58] LABS: FREE T3 2.31 pg/mL (2.77-5.27)
[2017-08-27 07:07] LABS: ANISOCYTOSIS 2+; HYPOCHROMASIA 1+; POLYCHROMASIA SLIGHT
[2017-08-27 07:08] LABS: PLATELET COMMENT ADEQUATE
[2017-08-27 07:11] LABS: THYROID STIMULATING HORMONE 9.11 uIU/mL (0.47-4.68)
--- NOTE | 2017-08-27 07:34 | EKG REPORT ---
SEVERITY:- ABNORMAL ECG - SINUS RHYTHM WITH PAC LEFT VENTRICULAR HYPERTROPHY INFERIOR INFARCT, OLD BORDERLINE PROLONGED QT INTERVAL : Confirmed by: Cody López MD 27-Aug-2017 07:33:39
[2017-08-27] MEDS: OXYCODONE HCL IR 5 MG TABLET PO PRN (07:55)
[2017-08-27] MEDS: CHOLECALCIFEROL (D3) 1,000 UNIT TABLET PO SCH (09:28)
[2017-08-27] MEDS: ASPIRIN 81 MG TABLET, ENT COATED PO SCH (09:28)
[2017-08-27] MEDS: AMIODARONE HCL 200 MG TABLET PO SCH (09:29)
[2017-08-27] MEDS: APIXABAN 5 MG TABLET PO SCH ×2 (09:29→22:09)
[2017-08-27] MEDS: FUROSEMIDE 40 MG TABLET PO SCH (09:29)
[2017-08-27] MEDS: DOCUSATE SODIUM 100 MG CAPSULE PO SCH ×2 (09:30→17:22)
[2017-08-27] MEDS ORDERED: LEVOTHYROXINE SODIUM 0.025 MG TABLET PO ONE (10:15)
--- NOTE | 2017-08-27 14:30 | PDOC PROGRESS REPORT ---
Subjective Progress Note for:: 08/27/17 Subjective:: Patient was admitted with fracture of the right femur and she is status post ORIF. Patient also has chronic atrial fibrillation although she is currently in sinus rhythm. She really denies any complaints at this time. She will need physical therapy and plan is for senior living facility when she is medically stable for discharge Reason For Visit: RIGHT FEMUR FRACTURE Physical Exam Vital Signs: Temp Pulse Resp BP Pulse Ox 98.4 F 79 16 123/31 L 94 08/27/17 08:07 08/27/17 08:07 08/27/17 08:07 08/27/17 08:07 08/27/17 08:07 Intake & Output 08/26/17 08/27/17 08/28/17 06:59 06:59 06:59 Intake Total 3555 1069 Output Total 500 400 Balance 3055 669 Weight 79.3 kg 79 kg General appearance: PRESENT: no acute distress, well-developed, well-nourished Head exam: PRESENT: atraumatic, normocephalic Eye exam: PRESENT: conjunctiva pink, EOMI, PERRLA. ABSENT: scleral icterus Ear exam: PRESENT: normal external ear exam Mouth exam: PRESENT: moist, tongue midline Neck exam: ABSENT: carotid bruit, JVD, lymphadenopathy, thyromegaly Respiratory exam: PRESENT: clear to auscultation chava. ABSENT: rales, rhonchi, wheezes Cardiovascular exam: PRESENT: RRR. ABSENT: diastolic murmur, rubs, systolic murmur Pulses: PRESENT: normal dorsalis pedis pul Vascular exam: PRESENT: normal capillary refill GI/Abdominal exam: PRESENT: normal bowel sounds, soft. ABSENT: distended, guarding, mass, organolmegaly, rebound, tenderness Rectal exam: PRESENT: deferred Extremities exam: ABSENT: calf tenderness, clubbing, pedal edema Musculoskeletal exam: PRESENT: other - R hip incision clean Neurological exam: PRESENT: alert, awake, oriented to person, oriented to place , oriented to time, oriented to situation, CN II-XII grossly intact. ABSENT: motor sensory deficit Psychiatric exam: PRESENT: appropriate affect, normal mood. ABSENT: homicidal ideation, suicidal ideation Skin exam: PRESENT: dry, intact, warm. ABSENT: cyanosis, rash Results Laboratory Results: 08/27/17 05:39 08/27/17 05:39 08/27/17 08/27/17 08/27/17 05:39 05:39 05:39 WBC 8.9 RBC 2.77 L Hgb 8.0 L Hct 23.4 L MCV 85 MCH 29.0 MCHC 34.3 RDW 19.1 H Plt Count 129 L Seg Neutrophils % 75.7 Lymphocytes % 8.8 L Monocytes % 10.3 Eosinophils % 4.5 Basophils % 0.7 Absolute Neutrophils 6.7 Absolute Lymphocytes 0.8 Absolute Monocytes 0.9 Absolute Eosinophils 0.4 Absolute Basophils 0.1 Sodium 132.4 L Potassium 3.7 Chloride 100 Carbon Dioxide 28 Anion Gap 4 L BUN 14 Creatinine 0.84 Est GFR ( Amer) > 60 Est GFR (Non-Af Amer) > 60 Glucose 101 Calcium 7.5 L TSH 9.11 H Free T3 pg/mL 2.31 L 08/26/17 08/27/17 05:57 05:39 Troponin I 0.014 0.013 Impressions: Hip/Pelvis X-Ray 08/23/17 12:08 IMPRESSION: Acute comminuted right intertrochanteric proximal femoral fracture with mild varus angulation. Chest X-Ray 08/23/17 13:29 IMPRESSION: HEART ENLARGED WITHOUT FAILURE. NO OTHER SIGNIFICANT RADIOGRAPHIC FINDING IN THE CHEST. Lumbar Spine X-Ray 08/23/17 13:33 IMPRESSION: Severe osteopenia. Diffuse degenerative disc disease. Fluoroscopy 08/25/17 00:00 IMPRESSION: Intra procedural imaging and fluoro Hip X-Ray 08/25/17 00:00 IMPRESSION: Intra procedural imaging and fluoro Assessment & Plan - Diagnosis (1) Chronic atrial fibrillation Is this a current diagnosis for this admission?: Yes (2) Closed right hip fracture Qualifiers: Encounter type: initial encounter Qualified Code(s): S72.001A - Fracture of unspecified part of neck of right femur, initial encounter for closed fracture Is this a current diagnosis for this admission?: Yes Plan: Day 2 status post ORIF. She will need rehab at discharge (3) COPD (chronic obstructive pulmonary disease) Qualifiers: COPD type: unspecified COPD Qualified Code(s): J44.9 - Chronic obstructive pulmonary disease, unspecified Is this a current diagnosis for this admission?: Yes (4) Hypothyroid Is this a current diagnosis for this admission?: Yes Plan: Patient is on Amiodarone so this is likely secondary to amiodarone. She has been started on Synthroid (5) Postoperative anemia Is this a current diagnosis for this admission?: Yes Plan: Hemoglobin has been drifting down currently at 8. If he continues to go down she may need transfusion. Of note patient is on apixaban. There is no azotemia and she is not hemodynamically unstable. Will obtain iron studies and repeat H&H in a.m. - Time Time Spent with patient: 15-24 minutes Medications reviewed and adjusted accordingly: Yes Anticipated discharge: SNF Within: within 48 hours - Inpatient Certification Based on my medical assessment, after consideration of the patient's comorbidities, presenting symptoms, or acuity I expect that the services needed warrant INPATIENT care.: Yes Medical Necessity: Need Close Monitoring Due to Risk of Patient Decompensation
--- NOTE | 2017-08-27 21:25 | PROGRESS NOTE E ---
Progress Note NAME: NILES KRUEGER : 1935 AGE: 82Y DATE: 08/27/2017 ROOM: 334 SUBJECTIVE: The patient appears to be comfortable. She denies any chest pain or discomfort. She remains in sinus rhythm. There is no recurrence of atrial fibrillation. There is no shortness of breath. There is no wheezing or coughing. No leg edema. There is no dizziness, syncope, or near syncope. OBJECTIVE: GENERAL: The patient is mildly overweight. She is well groomed, in no acute distress. VITAL SIGNS: She is afebrile with a temperature of 98.4 degrees Fahrenheit. Pulse is 79 beats per minute. Blood pressure 123/31. Respirations 16 per minute. O2 sats are 96% on 3 liters nasal cannula. HEENT: Head is atraumatic, normocephalic. Eyes: Pupils are equal, round, regular, reactive to light and accommodation. External ocular movements normal. There is mild conjunctival pallor. There is no scleral icterus. ENT is negative. NECK: Supple. There is no JVD. There is no bruit. There is no *------* aorta or the carotids. There is no carotid delay. There is no lymphadenopathy. There is no goiter. Trachea is central. LUNGS: Diminished air entry. Prolonged expiration without any rhonchi, rales, or wheezing. On percussion, there is hyperresonance. There is no chest wall tenderness. HEART: S1, S2 heard. S1 is of normal intensity. There is no S3 gallop. There is no S4 gallop. There is a systolic murmur left sternal border of the apex. There is a 1/6 diastolic murmur of aortic insufficiency present. There is no gallop. There is no rub. ABDOMEN: Soft, nontender. There is no hepatosplenomegaly. Bowel sounds are well heard. There are no tender areas or masses. EXTREMITIES: Femorals are slightly diminished. There is no femoral bruit. Leg pulses are diminished. There is no pedal edema. There is no DVT or cellulitis. There is no calf tenderness. Right hip dressing is dry. WOOD [employer]: The patient is conscious, awake, alert, oriented x3 with no focal deficit. PSYCHIATRIC: The patient's judgment and insight are intact. Her affect is normal. The patient's white count is 8900, hemoglobin is up to 8, hematocrit 23.4, platelet count is 129,000. The patient's sodium is 132.4, potassium 3.7, chloride 100, CO2 is 28. The patient's BUN is 14, creatinine 0.84. GFR is now normal at greater than 60. Her glucose is 101. Calcium is low at 7.5. Her TSH is 9.11. Her free T3 is low at 2.31. Her troponin-I is 0.013. IMPRESSION: 1. RIGHT HIP FRACTURE, status post surgery, stable. 2. CORONARY ARTERY DISEASE. History of stent in the right coronary artery as per records. The patient has no anginal symptoms. 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 Note the patient's EKG shows sinus rhythm with APC. There is LVH by voltage. There is minor diffuse nonspecific T-changes. Nondiagnostic of ischemia. 3. ANEMIA, postoperatively. Hemoglobin has dropped further. Will recommend *------* to keep the hemoglobin 10 or above, since the patient has coronary artery disease. 4. PAROXYSMAL ATRIAL FIBRILLATION. The patient is in sinus rhythm on amiodarone. 5. HYPOTHYROIDISM due to amiodarone. Will start the patient on Synthroid 0.025 mg p.o. daily and watch for development of atrial fibrillation. 6. HISTORY OF CHRONIC OBSTRUCTIVE PULMONARY DISEASE. At present, stable with no acute exacerbation. 7. AORTIC ROOT/ASCENDING THORACIC AORTIC ANEURYSM. 8. MODERATE AORTIC REGURGITATION BY ECHO. 9. HISTORY OF LUNG CANCER status post left lower lobectomy. 10. TOBACCO ABUSE DISORDER. 11. MOST LIKELY, THE PATIENT WAS PRERENAL. At present, renal function is normal. Hence, doubt chronic kidney disease, which we thought she had. The patient's renal function now is normal, suggesting prerenal azotemia which has been corrected. ADDENDUM: The patient's troponin-I is negative at 0.13. This has been discussed with the patient. 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 Will watch the patient for any recurrence of atrial fibrillation. Her medications have been reviewed, and new medications have been started. Note that 40 minutes spent on this patient, with more than 50% of the time spent in direct patient care. Medical decision making is of high complexity, in view of the fact that the patient does have atrial fibrillation. We are starting her on Synthroid with a risk of going back into paroxysmal atrial fibrillation. This has been discussed with the patient and the patient's [id number]. Discussed with the attending physician on the case. Will follow with you. DICTATING PHYSICIAN: NATALYA MALAVE M.D. [id number] PHY#: [id number] ID: [id number] JOB#: [id number] ACCT: [id number] cc: >
[2017-08-27] MEDS: SIMVASTATIN 40 MG TABLET PO SCH (22:09)
[2017-08-28] MEDS: OXYCODONE HCL IR 5 MG TABLET PO PRN ×2 (01:58→21:57)
[2017-08-28 05:47] LABS: ABSOLUTE RETICS # 0.077 10^6/uL (0.028-0.122); RETICULOCYTE COUNT (AUTO) 2.88 % (0.66-2.85)
[2017-08-28] MEDS: LEVOTHYROXINE SODIUM 0.025 MG TABLET PO SCH (05:54)
[2017-08-28 05:57] LABS: BLOOD UREA NITROGEN 16 mg/dL (7-20); CALCIUM 7.5 mg/dL (8.4-10.2); GLUCOSE 104 mg/dL (75-110); POTASSIUM 3.6 mmol/L (3.6-5.0)
[2017-08-28 05:58] LABS: ABSOLUTE BASOPHILS # (AUTO) 0.1 10^3/uL (0.0-0.2); ABSOLUTE EOSINOPHILS # (AUTO) 0.4 10^3/uL (0.0-0.6); ABSOLUTE LYMPHOCYTES (AUTO) 0.8 10^3/uL (0.5-4.7); ABSOLUTE MONOCYTES (AUTO) 0.8 10^3/uL (0.1-1.4); ABSOLUTE NEUT (AUTO) 5.3 10^3/uL (1.7-8.2); BASOPHILS % (AUTO) 0.9 % (0-2); HEMATOCRIT 22.3 % (36.0-47.0); LYMPHOCYTES % (AUTO) 11.3 % (13-45); MEAN CORPUSCULAR HEMOGLOBIN 28.7 pg (27.0-33.4); MEAN CORPUSCULAR HGB CONC 33.9 g/dL (32.0-36.0); MEAN CORPUSCULAR VOLUME 85 fl (80-97); MONOCYTES % (AUTO) 10.4 % (3-13); PLATELET COUNT 152 10^3/uL (150-450); RED BLOOD COUNT 2.64 10^6/uL (3.72-5.28); RED CELL DISTRIBUTION WIDTH 19.6 % (11.5-14.0); SEGMENTED NEUTROPHILS % (AUTO) 72.4 % (42-78); TOTAL CELLS COUNTED % (AUTO) 100 %; WHITE BLOOD COUNT 7.3 10^3/uL (4.0-10.5)
[2017-08-28] MEDS ORDERED: NORMAL SALINE 250 ML IV PRN (06:22)
[2017-08-28 06:26] LABS: HEMOGLOBIN 7.6 g/dL (12.0-15.5)
[2017-08-28 06:27] LABS: ANISOCYTOSIS 2+; OVALOCYTES SLIGHT; PLATELET COMMENT ADEQUATE; POIKILOCYTOSIS SLIGHT; POLYCHROMASIA SLIGHT; SCHISTOCYTES SLIGHT
--- NOTE | 2017-08-28 06:56 | PDOC PROGRESS REPORT ---
Subjective Progress Note for:: 08/28/17 Reason For Visit: RIGHT FEMUR FRACTURE 82-year-old white female postop day 3 from an open reduction internal fixation of her right intratrochanteric femur fracture. Patient continues to complain of right knee pain. Physical Exam Vital Signs: Temp Pulse Resp BP Pulse Ox 36.9 C 72 16 133/37 H 96 08/28/17 04:33 08/28/17 04:33 08/28/17 04:33 08/28/17 04:33 08/28/17 04:33 Intake & Output 08/26/17 08/27/17 08/28/17 06:59 06:59 06:59 Intake Total 3555 1069 565 Output Total 500 400 400 Balance 3055 669 165 Weight 79.3 kg 79 kg General appearance: PRESENT: mild distress Head exam: PRESENT: normocephalic Respiratory exam: PRESENT: unlabored Cardiovascular exam: PRESENT: RRR Pulses: PRESENT: +1 pedal pulses bilateral Vascular exam: PRESENT: normal capillary refill GI/Abdominal exam: PRESENT: soft Rectal exam: PRESENT: deferred Extremities exam: PRESENT: other - Right lower extremity dressings clean dry and intact. Distal neurovascular examination is intact. Neurological exam: PRESENT: alert, awake, oriented to person, oriented to place , oriented to time, oriented to situation. ABSENT: motor sensory deficit Psychiatric exam: PRESENT: appropriate affect, normal mood. ABSENT: homicidal ideation, suicidal ideation Skin exam: PRESENT: dry, intact, warm. ABSENT: cyanosis, rash Results Laboratory Results: 08/28/17 05:24 08/27/17 08/27/17 08/28/17 05:39 05:39 05:24 WBC 8.9 7.3 RBC 2.77 L 2.64 L Hgb 8.0 L 7.6 L Hct 23.4 L 22.3 L MCV 85 85 MCH 29.0 28.7 MCHC 34.3 33.9 RDW 19.1 H 19.6 H Plt Count 129 L 152 Seg Neutrophils % 75.7 72.4 Lymphocytes % 8.8 L 11.3 L Monocytes % 10.3 10.4 Eosinophils % 4.5 5.0 Basophils % 0.7 0.9 Absolute Neutrophils 6.7 5.3 Absolute Lymphocytes 0.8 0.8 Absolute Monocytes 0.9 0.8 Absolute Eosinophils 0.4 0.4 Absolute Basophils 0.1 0.1 Retic Count (auto) 2.88 H Absolute Retic 0.077 TSH 9.11 H Free T3 pg/mL 2.31 L 08/26/17 08/27/17 05:57 05:39 Troponin I 0.014 0.013 Impressions: Hip/Pelvis X-Ray 08/23/17 12:08 IMPRESSION: Acute comminuted right intertrochanteric proximal femoral fracture with mild varus angulation. Chest X-Ray 08/23/17 13:29 IMPRESSION: HEART ENLARGED WITHOUT FAILURE. NO OTHER SIGNIFICANT RADIOGRAPHIC FINDING IN THE CHEST. Lumbar Spine X-Ray 08/23/17 13:33 IMPRESSION: Severe osteopenia. Diffuse degenerative disc disease. Fluoroscopy 08/25/17 00:00 IMPRESSION: Intra procedural imaging and fluoro Hip X-Ray 08/25/17 00:00 IMPRESSION: Intra procedural imaging and fluoro Status: Imported from PACS Assessment & Plan - Diagnosis (1) Closed right hip fracture Qualifiers: Encounter type: initial encounter Qualified Code(s): S72.001A - Fracture of unspecified part of neck of right femur, initial encounter for closed fracture Is this a current diagnosis for this admission?: Yes Plan: Continue to mobilize with physical therapy and weightbearing as tolerated basis (2) Postoperative anemia due to acute blood loss Is this a current diagnosis for this admission?: Yes Plan: Hematocrit is dropped to 23.4%. 2 units of packed red blood cells have been ordered. (3) Right knee pain Qualifiers: Chronicity: acute Qualified Code(s): M25.561 - Pain in right knee Is this a current diagnosis for this admission?: Yes Plan: X-rays have been ordered. - Time Time Spent with patient: 15-24 minutes Anticipated discharge: Other Within: Other
[2017-08-28] MEDS ORDERED: NA PHOS,M-B/NA PHOS,DI-BA (ADULT) 133 ML ENEMA PR ONE (07:00)
[2017-08-28 07:04] LABS: FOLATE 7.94 ng/mL (>2.76)
[2017-08-28 07:21] LABS: CARBON DIOXIDE 30 mmol/L (22-30); CHLORIDE 97 mmol/L (98-107); SODIUM 132.1 mmol/L (137-145)
[2017-08-28 07:23] LABS: ANION GAP 5 (5-19); IRON(TIBC) < 10.1 ug/dL (37-170)
[2017-08-28] MEDS: APIXABAN 5 MG TABLET PO SCH ×2 (08:40→21:58)
[2017-08-28] MEDS: CHOLECALCIFEROL (D3) 1,000 UNIT TABLET PO SCH (08:40)
[2017-08-28] MEDS: DOCUSATE SODIUM 100 MG CAPSULE PO SCH ×2 (08:40→18:37)
[2017-08-28] MEDS: FUROSEMIDE 40 MG TABLET PO SCH (08:41)
[2017-08-28] MEDS: AMIODARONE HCL 200 MG TABLET PO SCH (08:41)
[2017-08-28] MEDS: ASPIRIN 81 MG TABLET, ENT COATED PO SCH (08:41)
--- NOTE | 2017-08-28 13:23 | RADIOLOGY REPORT (SQ) ---
EXAM DESCRIPTION: KNEE RIGHT 2 VIEWS COMPLETED DATE/TIME: 08/28/2017 10:58 am REASON FOR STUDY: swelling/ POST OP ORIF FEMUR COMPARISON: None. NUMBER OF VIEWS: Two views TECHNIQUE: AP and lateral radiographic images acquired of the right knee. LIMITATIONS: None. FINDINGS: MINERALIZATION: Normal. BONES: No acute fracture or dislocation. No worrisome bone lesions. JOINT: Small suprapatellar knee joint effusion SOFT TISSUES: Skin isa lateral right distal thigh. Mild soft tissue swelling adjacent to the ski n isa. OTHER: Intramedullary nail anchored with a single distal right femoral metaphysis screw. No distal f emur fracture. IMPRESSION: Distal aspect right femoral intramedullary nail in good positioning. Suspect a small suprapatellar knee joint effusion. Mild lateral distal thigh soft tissue swelling TECHNICAL DOCUMENTATION: JOB ID: [id number] [employer]- All Rights Reserved Reading location - IP/workstation name: [email or web address]
--- NOTE | 2017-08-28 15:17 | PDOC PROGRESS REPORT ---
Subjective Progress Note for:: 08/28/17 Subjective:: Patient was admitted with fracture of the right femur and she is status post ORIF. Patient has paroxysmal not chronic atrial fibrillation. She reports feeling better today although anemic. There has been no evidence of bleeding. Reason For Visit: RIGHT FEMUR FRACTURE Physical Exam Vital Signs: Temp Pulse Resp BP Pulse Ox 98.2 F 81 20 123/33 L 98 08/28/17 14:40 08/28/17 14:40 08/28/17 14:40 08/28/17 14:40 08/28/17 14:40 Intake & Output 08/27/17 08/28/17 08/29/17 06:59 06:59 06:59 Intake Total 1069 565 360 Output Total 400 400 Balance 669 165 360 Weight 79 kg 79 kg General appearance: PRESENT: no acute distress Head exam: PRESENT: atraumatic Eye exam: PRESENT: conjunctiva pale, EOMI, PERRLA. ABSENT: scleral icterus Ear exam: PRESENT: normal external ear exam Neck exam: ABSENT: carotid bruit, JVD, lymphadenopathy, thyromegaly Respiratory exam: PRESENT: clear to auscultation chava. ABSENT: rales, rhonchi, wheezes Cardiovascular exam: PRESENT: RRR. ABSENT: diastolic murmur, rubs, systolic murmur GI/Abdominal exam: PRESENT: normal bowel sounds, soft. ABSENT: distended, guarding, mass, organolmegaly, rebound, tenderness Neurological exam: PRESENT: alert, awake, oriented to person, oriented to place , oriented to time, oriented to situation, CN II-XII grossly intact. ABSENT: motor sensory deficit Psychiatric exam: PRESENT: appropriate affect, normal mood. ABSENT: homicidal ideation, suicidal ideation Results Laboratory Results: 08/28/17 05:24 08/28/17 05:24 08/28/17 08/28/17 08/28/17 05:24 05:24 06:34 WBC 7.3 RBC 2.64 L Hgb 7.6 L Hct 22.3 L MCV 85 MCH 28.7 MCHC 33.9 RDW 19.6 H Plt Count 152 Seg Neutrophils % 72.4 Lymphocytes % 11.3 L Monocytes % 10.4 Eosinophils % 5.0 Basophils % 0.9 Absolute Neutrophils 5.3 Absolute Lymphocytes 0.8 Absolute Monocytes 0.8 Absolute Eosinophils 0.4 Absolute Basophils 0.1 Retic Count (auto) 2.88 H Absolute Retic 0.077 Sodium 132.1 L Potassium 3.6 Chloride 97 L Carbon Dioxide 30 Anion Gap 5 BUN 16 Creatinine 0.86 Est GFR ( Amer) > 60 Est GFR (Non-Af Amer) > 60 Glucose 104 Calcium 7.5 L Iron < 10.1 L TIBC 209 L % Saturation UNABLE TO CALCULATE Ferritin 71.60 Vitamin B12 173.0 L Folate 7.94 Blood Type O NEGATIVE Antibody Screen NEGATIVE 08/26/17 08/27/17 05:57 05:39 Troponin I 0.014 0.013 Impressions: Hip/Pelvis X-Ray 08/23/17 12:08 IMPRESSION: Acute comminuted right intertrochanteric proximal femoral fracture with mild varus angulation. Chest X-Ray 08/23/17 13:29 IMPRESSION: HEART ENLARGED WITHOUT FAILURE. NO OTHER SIGNIFICANT RADIOGRAPHIC FINDING IN THE CHEST. Lumbar Spine X-Ray 08/23/17 13:33 IMPRESSION: Severe osteopenia. Diffuse degenerative disc disease. Fluoroscopy 08/25/17 00:00 IMPRESSION: Intra procedural imaging and fluoro Hip X-Ray 08/25/17 00:00 IMPRESSION: Intra procedural imaging and fluoro Knee X-Ray 08/28/17 00:00 IMPRESSION: Distal aspect right femoral intramedullary nail in good positioning. Suspect a small suprapatellar knee joint effusion. Mild lateral distal thigh soft tissue swelling Assessment & Plan - Diagnosis (1) Postoperative anemia Is this a current diagnosis for this admission?: Yes Plan: Patient is for transfusion today. She is also severely iron deficient and will need IV iron prior to discharge as well as oral iron. Will advise follow-up with PCP at discharge for further evaluation of iron deficiency anemia (2) Closed right hip fracture Qualifiers: Encounter type: subsequent encounter Qualified Code(s): S72.001A - Fracture of unspecified part of neck of right femur, initial encounter for closed fracture Is this a current diagnosis for this admission?: Yes Plan: Day 3 status post ORIF. She will need rehab at discharge (3) COPD (chronic obstructive pulmonary disease) Qualifiers: COPD type: unspecified COPD Qualified Code(s): J44.9 - Chronic obstructive pulmonary disease, unspecified Is this a current diagnosis for this admission?: Yes (4) Hypothyroid Is this a current diagnosis for this admission?: Yes Plan: Secondary to amiodarone. Continue Synthroid (5) Thrombocytopenia Is this a current diagnosis for this admission?: Yes Plan: Likely related to acute illness this is resolved (6) Paroxysmal atrial fibrillation Is this a current diagnosis for this admission?: Yes Plan: Continue amiodarone for rate control. Patient is also on Eliquis - Time Time Spent with patient: 15-24 minutes Medications reviewed and adjusted accordingly: Yes Anticipated discharge: Home Within: within 72 hours - Inpatient Certification Based on my medical assessment, after consideration of the patient's comorbidities, presenting symptoms, or acuity I expect that the services needed warrant INPATIENT care.: Yes Medical Necessity: Need Close Monitoring Due to Risk of Patient Decompensation, Risk of Complication if Not Cared For in Hospital
[2017-08-28] MEDS: FERROUS SULFATE 325 MG TABLET PO SCH (18:37)
[2017-08-28 18:58] LABS: HEMATOCRIT 29.5 % (36.0-47.0); MEAN CORPUSCULAR HEMOGLOBIN 28.5 pg (27.0-33.4); MEAN CORPUSCULAR HGB CONC 34.6 g/dL (32.0-36.0); MEAN CORPUSCULAR VOLUME 83 fl (80-97); PLATELET COUNT 161 10^3/uL (150-450); RED BLOOD COUNT 3.58 10^6/uL (3.72-5.28); RED CELL DISTRIBUTION WIDTH 17.5 % (11.5-14.0); WHITE BLOOD COUNT 7.9 10^3/uL (4.0-10.5)
[2017-08-28 18:59] LABS: HEMOGLOBIN 10.2 g/dL (12.0-15.5)
[2017-08-28] MEDS: SIMVASTATIN 40 MG TABLET PO SCH (21:58)
--- NOTE | 2017-08-28 23:35 | PROGRESS NOTE E ---
Progress Note NAME: NILES KRUEGER : 1935 AGE: 82Y DATE: 08/28/2017 ROOM: 334 SUBJECTIVE: The patient denies any chest pain or discomfort. She is receiving blood for anemia. Her hemoglobin dropped further, but she has no symptoms. She denies any chest pain or discomfort. There is no recurrence of atrial fibrillation. There is no PND, orthopnea, or leg edema. There is no TIA or CVA symptoms. OBJECTIVE: GENERAL: The patient is mildly overweight. She is well groomed, in no acute distress. VITAL SIGNS: She has a low grade temperature of 99.1 degrees Fahrenheit. Pulse 84 beats per minute, blood pressure 133/37, respirations 18 per minute, O2 sats 96% on 2.5 liters nasal cannula. HEENT: Head is atraumatic, normocephalic. Eyes: Pupils are equal, round, regular, reactive to light and accommodation. Extraocular movements are normal. There is conjunctival pallor present. There is no scleral icterus. ENT is negative. NECK: Supple. There is no JVD. Carotids are equal. There is no bruit. There is no transmitted *------* murmur heard. No rub. There is no lymphadenopathy. There is no goiter. Trachea is central. LUNGS: Clear to auscultation and percussion. Diminished breath sounds in the left lower lobe. HEART: S1, S2 heard. There is no S3 gallop. There is no S4 gallop. There is a systolic murmur present. There is no murmur of aortic stenosis. There is a mild diastolic murmur of aortic regurgitation present. There is no mitral regurgitation of significance. There is no rub, no gallop. ABDOMEN: Soft, nontender. There is no hepatosplenomegaly. Bowel sounds are well heard. EXTREMITIES: Femorals are slightly diminished. There are no femoral bruits. Leg pulses are diminished. There is no pedal edema. There is no DVT or cellulitis. There is no calf tenderness. Right hip dressing is dry. 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 PSYCHIATRIC: The patient's judgment and insight are intact. Her affect is normal. Right knee x2 views shows the distal aspect of the right femoral intramedullary nail in good position. Suspect a small suprapatellar knee joint effusion. Mild lateral distal tissue [place] [address], hemoglobin 7.6, hematocrit 22.3, and platelet count is 152,000. The patient's sodium is 132.1, potassium 3.6, chloride 97, CO2 is 30. The patient's BUN is 16, creatinine 0.86. GFR is good at 60. Calcium 7.5. Iron is less than 10. TIBC 209. Percent saturation unable to calculate. Her ferritin is 21.60. Folate is 7.94. Her B12 is low at 173. IMPRESSION: 1. RIGHT HIP FRACTURE STATUS POST SURGERY. 2. ANEMIA, severe, postop. The patient also has iron deficiency and B12 deficiency. The patient will receive 2 units of packed RBCs and also the patient will be started on oral iron and oral vitamin B12. 3. CORONARY ARTERY DISEASE. Patient without any anginal symptoms. No evidence of postop myocardial infarction. 4. PAROXYSMAL ATRIAL FIBRILLATION. At present, the patient is in sinus rhythm. Continue amiodarone. 5. HYPOTHYROIDISM due to amiodarone. The patient is tolerating Synthroid without any recurrence of atrial fibrillation. 6. HISTORY OF CHRONIC OBSTRUCTIVE PULMONARY DISEASE. At present, stable with no acute exacerbation. 7. AORTIC ROOT/ASCENDING THORACIC AORTIC ANEURYSM. Stable. 8. MODERATE AORTIC REGURGITATION BY ECHO. 9. 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 10. TOBACCO ABUSE DISORDER. Note that the patient's renal function has become normal, suggesting that this was prerenal. RECOMMENDATIONS: Agree with transfusing blood and getting the hemoglobin up to 10. Also will start the patient on oral iron and B12. Consider giving first dose of B12 intramuscularly. Continue the patient's oral vitamin B12 supplementation. Continue pain medication. Continue amiodarone. Continue Synthroid. Medical decision making is of moderate complexity. Note 40 minutes spent on the patient, more than 50% of the time spent in direct patient care. Discussed with other care giving providers on the case. As mentioned, medical decision making is of moderate complexity. Will follow with you. DICTATING PHYSICIAN: NATALYA MALAVE M.D. [id number] PHY#: [id number] ID: [id number] JOB#: [id number] ACCT: [id number] cc: >
[2017-08-29 05:09] LABS: HEMATOCRIT 28.3 % (36.0-47.0); HEMOGLOBIN 9.9 g/dL (12.0-15.5); MEAN CORPUSCULAR HGB CONC 35.1 g/dL (32.0-36.0); MEAN CORPUSCULAR VOLUME 83 fl (80-97); PLATELET COUNT 162 10^3/uL (150-450); RED BLOOD COUNT 3.43 10^6/uL (3.72-5.28); WHITE BLOOD COUNT 7.7 10^3/uL (4.0-10.5)
[2017-08-29] MEDS: LEVOTHYROXINE SODIUM 0.025 MG TABLET PO SCH (05:22)
[2017-08-29 05:30] LABS: ANION GAP 8 (5-19); BLOOD UREA NITROGEN 18 mg/dL (7-20); CALCIUM 7.8 mg/dL (8.4-10.2); CARBON DIOXIDE 29 mmol/L (22-30); CHLORIDE 97 mmol/L (98-107); GLUCOSE 100 mg/dL (75-110); POTASSIUM 3.6 mmol/L (3.6-5.0); SODIUM 133.9 mmol/L (137-145)
--- NOTE | 2017-08-29 07:22 | PDOC PROGRESS REPORT ---
Subjective Progress Note for:: 08/29/17 Reason For Visit: RIGHT FEMUR FRACTURE 82-year-old white female postop day 4 from ORIF of a right proximal femur fracture Physical Exam Vital Signs: Temp Pulse Resp BP Pulse Ox 36.7 C 67 20 137/34 H 98 08/29/17 03:39 08/29/17 03:39 08/29/17 03:39 08/29/17 03:39 08/29/17 03:39 Intake & Output 08/28/17 08/29/17 08/30/17 06:59 06:59 06:59 Intake Total 565 1642 Output Total 400 650 Balance 165 992 Weight 79 kg 80 kg General appearance: PRESENT: no acute distress, mild distress Extremities exam: PRESENT: other - Right lower extremity wounds are clean dry and intact. Results Laboratory Results: 08/29/17 04:52 08/29/17 04:52 08/28/17 08/28/17 08/28/17 05:24 06:34 18:40 WBC 7.9 RBC 3.58 L Hgb 10.2 L D Hct 29.5 L MCV 83 MCH 28.5 MCHC 34.6 RDW 17.5 H Plt Count 161 Sodium 132.1 L Potassium 3.6 Chloride 97 L Carbon Dioxide 30 Anion Gap 5 BUN 16 Creatinine 0.86 Est GFR ( Amer) > 60 Est GFR (Non-Af Amer) > 60 Glucose 104 Calcium 7.5 L Iron < 10.1 L TIBC 209 L % Saturation UNABLE TO CALCULATE Ferritin 71.60 Vitamin B12 173.0 L Folate 7.94 Blood Type O NEGATIVE Antibody Screen NEGATIVE 08/29/17 08/29/17 04:52 04:52 WBC 7.7 RBC 3.43 L Hgb 9.9 L Hct 28.3 L MCV 83 MCH 29.0 MCHC 35.1 RDW 18.0 H Plt Count 162 Sodium 133.9 L Potassium 3.6 Chloride 97 L Carbon Dioxide 29 Anion Gap 8 BUN 18 Creatinine 0.82 Est GFR ( Amer) > 60 Est GFR (Non-Af Amer) > 60 Glucose 100 Calcium 7.8 L Iron TIBC % Saturation Ferritin Vitamin B12 Folate Blood Type Antibody Screen 08/26/17 08/27/17 05:57 05:39 Troponin I 0.014 0.013 Impressions: Hip/Pelvis X-Ray 08/23/17 12:08 IMPRESSION: Acute comminuted right intertrochanteric proximal femoral fracture with mild varus angulation. Chest X-Ray 08/23/17 13:29 IMPRESSION: HEART ENLARGED WITHOUT FAILURE. NO OTHER SIGNIFICANT RADIOGRAPHIC FINDING IN THE CHEST. Lumbar Spine X-Ray 08/23/17 13:33 IMPRESSION: Severe osteopenia. Diffuse degenerative disc disease. Fluoroscopy 08/25/17 00:00 IMPRESSION: Intra procedural imaging and fluoro Hip X-Ray 08/25/17 00:00 IMPRESSION: Intra procedural imaging and fluoro Knee X-Ray 08/28/17 00:00 IMPRESSION: Distal aspect right femoral intramedullary nail in good positioning. Suspect a small suprapatellar knee joint effusion. Mild lateral distal thigh soft tissue swelling Status: Imported from PACS Assessment & Plan - Diagnosis (1) Closed right hip fracture Qualifiers: Encounter type: subsequent encounter Qualified Code(s): S72.001A - Fracture of unspecified part of neck of right femur, initial encounter for closed fracture Is this a current diagnosis for this admission?: Yes Plan: Continue with physical therapy and weightbearing as tolerated basis. Anticipate discharge home with home health services (2) Postoperative anemia due to acute blood loss Is this a current diagnosis for this admission?: Yes (3) Right knee pain Qualifiers: Chronicity: acute Qualified Code(s): M25.561 - Pain in right knee Is this a current diagnosis for this admission?: Yes Plan: Knee x-rays are interpreted as normal - Time Time Spent with patient: 15-24 minutes Anticipated discharge: Home with Homehealth Within: within 24 hours
[2017-08-29] MEDS: FERROUS SULFATE 325 MG TABLET PO SCH ×2 (08:28→17:28)
[2017-08-29] MEDS: FUROSEMIDE 40 MG TABLET PO SCH (08:28)
[2017-08-29] MEDS: CHOLECALCIFEROL (D3) 1,000 UNIT TABLET PO SCH (09:14)
[2017-08-29] MEDS: ASPIRIN 81 MG TABLET, ENT COATED PO SCH (09:14)
[2017-08-29] MEDS: CYANOCOBALAMIN (VITAMIN B-12) 1,000 MCG TABLET PO SCH (09:15)
[2017-08-29] MEDS: APIXABAN 5 MG TABLET PO SCH ×2 (09:15→21:11)
[2017-08-29] MEDS: DOCUSATE SODIUM 100 MG CAPSULE PO SCH ×2 (09:15→17:28)
[2017-08-29] MEDS: AMIODARONE HCL 200 MG TABLET PO SCH (09:15)
--- NOTE | 2017-08-29 12:55 | RADIOLOGY REPORT (SQ) ---
EXAM DESCRIPTION: CHEST SINGLE VIEW COMPLETED DATE/TIME: 08/29/2017 12:08 pm REASON FOR STUDY: shortness of breath COMPARISON: AP chest 08/23/2017, 08/12/2017, 12/25/2006 EXAM PARAMETERS: NUMBER OF VIEWS: One view. TECHNIQUE: Single frontal radiographic view of the chest acquired. RADIATION DOSE: NA LIMITATIONS: None. FINDINGS: LUNGS AND PLEURA: No opacities, masses or pneumothorax. No pleural effusion. MEDIASTINUM AND HILAR STRUCTURES: No masses. Contour normal. HEART AND VASCULAR STRUCTURES: Stable cardiomegaly. Normal vasculature. BONES: No acute findings. HARDWARE: None in the chest. OTHER: No other significant finding. IMPRESSION: NO ACUTE RADIOGRAPHIC FINDING IN THE CHEST. TECHNICAL DOCUMENTATION: JOB ID: [id number] [employer]- All Rights Reserved Reading location - IP/workstation name: [email or web address]
[2017-08-29] MEDS ORDERED: CYANOCOBALAMIN (VITAMIN B-12) INJ 1000 MCG/1 ML VIAL IM ONE (14:00)
--- NOTE | 2017-08-29 16:16 | PDOC PROGRESS REPORT ---
Subjective Progress Note for:: 08/29/17 Subjective:: Patient was admitted with fracture of the right femur and she is status post ORIF. Patient has paroxysmal not chronic atrial fibrillation. She reports feeling better today. She does report feeling weak Reason For Visit: RIGHT FEMUR FRACTURE Physical Exam Vital Signs: Temp Pulse Resp BP Pulse Ox 98.3 F 82 20 135/40 H 98 08/29/17 12:54 08/29/17 14:00 08/29/17 12:54 08/29/17 12:54 08/29/17 12:54 Intake & Output 08/28/17 08/29/17 08/30/17 06:59 06:59 06:59 Intake Total 565 1642 400 Output Total 400 650 300 Balance 165 992 100 Weight 79 kg 80 kg General appearance: PRESENT: no acute distress, well-developed, well-nourished Head exam: PRESENT: atraumatic, normocephalic Eye exam: PRESENT: conjunctiva pink, EOMI, PERRLA. ABSENT: scleral icterus Ear exam: PRESENT: normal external ear exam Mouth exam: PRESENT: moist, tongue midline Neck exam: ABSENT: carotid bruit, JVD, lymphadenopathy, thyromegaly Respiratory exam: PRESENT: clear to auscultation chava. ABSENT: rales, rhonchi, wheezes Cardiovascular exam: PRESENT: RRR. ABSENT: diastolic murmur, rubs, systolic murmur Pulses: PRESENT: normal dorsalis pedis pul Vascular exam: PRESENT: normal capillary refill GI/Abdominal exam: PRESENT: normal bowel sounds, soft. ABSENT: distended, guarding, mass, organolmegaly, rebound, tenderness Rectal exam: PRESENT: deferred Extremities exam: PRESENT: other - R hip incision site appears clean, no discharges. ABSENT: calf tenderness, clubbing, pedal edema Neurological exam: PRESENT: alert, awake, oriented to person, oriented to place , oriented to time, oriented to situation, CN II-XII grossly intact. ABSENT: motor sensory deficit Psychiatric exam: PRESENT: appropriate affect, normal mood. ABSENT: homicidal ideation, suicidal ideation Skin exam: PRESENT: dry, intact, warm. ABSENT: cyanosis, rash Results Laboratory Results: 08/29/17 04:52 08/29/17 04:52 08/28/17 08/29/17 08/29/17 18:40 04:52 04:52 WBC 7.9 7.7 RBC 3.58 L 3.43 L Hgb 10.2 L D 9.9 L Hct 29.5 L 28.3 L MCV 83 83 MCH 28.5 29.0 MCHC 34.6 35.1 RDW 17.5 H 18.0 H Plt Count 161 162 Sodium 133.9 L Potassium 3.6 Chloride 97 L Carbon Dioxide 29 Anion Gap 8 BUN 18 Creatinine 0.82 Est GFR ( Amer) > 60 Est GFR (Non-Af Amer) > 60 Glucose 100 Calcium 7.8 L 08/26/17 08/27/17 08/29/17 05:57 05:39 04:52 Troponin I 0.014 0.013 NT-Pro-B Natriuret Pep 454 H Impressions: Hip/Pelvis X-Ray 08/23/17 12:08 IMPRESSION: Acute comminuted right intertrochanteric proximal femoral fracture with mild varus angulation. Lumbar Spine X-Ray 08/23/17 13:33 IMPRESSION: Severe osteopenia. Diffuse degenerative disc disease. Fluoroscopy 08/25/17 00:00 IMPRESSION: Intra procedural imaging and fluoro Hip X-Ray 08/25/17 00:00 IMPRESSION: Intra procedural imaging and fluoro Knee X-Ray 08/28/17 00:00 IMPRESSION: Distal aspect right femoral intramedullary nail in good positioning. Suspect a small suprapatellar knee joint effusion. Mild lateral distal thigh soft tissue swelling Chest X-Ray 08/29/17 00:00 IMPRESSION: NO ACUTE RADIOGRAPHIC FINDING IN THE CHEST. Assessment & Plan - Diagnosis (1) Postoperative anemia Is this a current diagnosis for this admission?: Yes (2) Closed right hip fracture Qualifiers: Encounter type: subsequent encounter Qualified Code(s): S72.001A - Fracture of unspecified part of neck of right femur, initial encounter for closed fracture Is this a current diagnosis for this admission?: Yes (3) COPD (chronic obstructive pulmonary disease) Qualifiers: COPD type: unspecified COPD Qualified Code(s): J44.9 - Chronic obstructive pulmonary disease, unspecified Is this a current diagnosis for this admission?: Yes (4) Hypothyroid Is this a current diagnosis for this admission?: Yes (5) Thrombocytopenia Is this a current diagnosis for this admission?: Yes (6) Paroxysmal atrial fibrillation Is this a current diagnosis for this admission?: Yes - Time Time Spent with patient: 15-24 minutes Medications reviewed and adjusted accordingly: Yes Anticipated discharge: SNF Within: within 48 hours - Inpatient Certification Based on my medical assessment, after consideration of the patient's comorbidities, presenting symptoms, or acuity I expect that the services needed warrant INPATIENT care.: Yes Medical Necessity: Need Close Monitoring Due to Risk of Patient Decompensation
[2017-08-29] MEDS: OXYCODONE HCL IR 5 MG TABLET PO PRN (21:12)
[2017-08-29] MEDS: SIMVASTATIN 40 MG TABLET PO SCH (21:12)
--- NOTE | 2017-08-30 00:20 | PROGRESS NOTE E ---
Progress Note NAME: NILES KRUEGER : 1935 AGE: 82Y DATE: 08/29/2017 ROOM: 334 SUBJECTIVE: The patient denies any chest pain or discomfort. There is no PND, orthopnea. Her hemoglobin remains fairly stable after transfusion. There are no anginal symptoms. There is no recurrence of atrial fibrillation. There is no PND, orthopnea. There are no TIA or CVA symptoms. There is no bleeding on Eliquis. OBJECTIVE: GENERAL: On examination the patient is slightly overweight. She is well-groomed in no acute distress. VITAL SIGNS: She is afebrile with a temperature of 98.2 degrees Fahrenheit. Her pulse is 68 beats per minute, blood pressure 130/35, respirations are 16 per minute, O2 saturations are 97% on 2.5 liters nasal cannula. HEENT: Head is atraumatic, normocephalic. Eyes: Pupils are equal, round and regular, reactive to light and accommodation. Extraocular movements are normal. There is no conjunctival pallor. There is no scleral icterus. ENT is negative. NECK: Supple. There is no JVD. There is no lymphadenopathy. There is no goiter. Carotids are equal. There is no bruit. There is no transmitted murmur heard over the carotids from the aortic area. There is no rub. Trachea is central. LUNGS: Show slightly diminished breath sounds in the left lower lobe, otherwise clear to auscultation and percussion. There is diminished air entry, prolonged expiration. HEART: S1, S2 is heard. There is no S3 gallop. There is no S4 gallop. There is a systolic murmur in the left sternal border and the apex. There is no murmur or aortic stenosis. There is mild atretic murmur of aortic regurgitation present. There is no mitral regurgitation murmur of significance. There is no rub. There are no gallops. S1 is of normal intensity. ABDOMEN: Soft, nontender. There is no hepatosplenomegaly. Bowel sounds are well heard. EXTREMITIES: Femorals are slightly diminished. There are no femoral bruits. Leg pulses are diminished. There is no pedal edema. There is no DVT or cellulitis. There is no calf tenderness. Right hip dressing is dry. CENTRAL NERVOUS SYSTEM: The patient is conscious, awake, alert and oriented x3 with no focal deficits. PSYCHIATRIC: The patient's judgment and insight are intact. Her affect is normal. DIAGNOSTICS: The patient's white count is 7700, hemoglobin is 9.9, hematocrit is 28.3, platelet count is 162,000. The patient's sodium is 133.9, potassium is 3.6, chloride is 97, CO2 is 29. The patient's BUN is 18, creatinine is 0.82, GFR is greater than 60. Her glucose is 100, calcium is low at 7.9. Her NT-proBNP is 454. IMPRESSION: 1. RIGHT HIP FRACTURE, STATUS POST SURGERY. 2. ANEMIA, STATUS POST BLOOD TRANSFUSION AND THE PATIENT ALSO IS ON IRON SUPPLEMENT AND ALSO ON B12 PO. We will give 1000 mcg of B12 injection intramuscularly. 3. CORONARY ARTERY DISEASE. PATIENT WITHOUT ANY ANGINAL SYMPTOMS. NO EVIDENCE OF POSTOP MS. THE PATIENT HAS A HISTORY OF RIGHT CORONARY ARTERY STENT. 4. PAROXYSMAL ATRIAL FIBRILLATION, AT PRESENT IN SINUS RHYTHM. 5. HYPOTHYROIDISM DUE TO AMIODARONE. The patient is tolerating Synthroid without any recurrence of atrial fibrillation. 6. HISTORY OF COPD, AT PRESENT STABLE WITHOUT ANY ACUTE EXACERBATION. 7. AORTIC ROOT/ASCENDING THORACIC AORTIC ANEURYSM, STABLE. 8. MODERATE AORTIC REGURGITATION BY ECHO AND BY PHYSICAL EXAM. 9. HISTORY OF LUNG CANCER, STATUS POST LEFT LOWER LOBECTOMY. 10. TOBACCO ABUSE DISORDER. RECOMMENDATIONS: As mentioned earlier medicines have been reviewed and adjusted. We will give the patient a 1000 mcg of B12 injection intramuscularly. Continue the p.o. medication a 1000 mcg p.o. daily of B12. Continue iron supplements. Continue amiodarone. Continue Synthroid. Continue Eliquis. We will check the patient's reticulocyte count to make sure that it is going up. Note we will follow with you. Medical decision making is of moderate complexity including additional medication prescribed and order given to the patient. Discussed with the other caregiving providers on the case. TIME SPENT: Note 40 minutes spent on this patient with more than 50% of the time spent on direct patient care. DICTATING PHYSICIAN: NATALYA MALAVE M.D. [id number] PHY#: [id number] ID: [id number] JOB#: [id number] ACCT: [id number] cc: >
[2017-08-30] MEDS: LEVOTHYROXINE SODIUM 0.025 MG TABLET PO SCH (05:36)
[2017-08-30 06:12] LABS: ABSOLUTE RETICS # 0.075 10^6/uL (0.028-0.122); RETICULOCYTE COUNT (AUTO) 2.26 % (0.66-2.85)
[2017-08-30] MEDS: FUROSEMIDE 40 MG TABLET PO SCH (08:09)
[2017-08-30] MEDS: FERROUS SULFATE 325 MG TABLET PO SCH ×2 (08:09→17:22)
[2017-08-30] MEDS ORDERED: IRON SUCROSE COMPLEX INJ/PF 100 MG/5 ML SDV IV ONE (08:30)
[2017-08-30] MEDS: CHOLECALCIFEROL (D3) 1,000 UNIT TABLET PO SCH (09:01)
[2017-08-30] MEDS: CYANOCOBALAMIN (VITAMIN B-12) 1,000 MCG TABLET PO SCH (09:01)
[2017-08-30] MEDS: ASPIRIN 81 MG TABLET, ENT COATED PO SCH (09:01)
[2017-08-30] MEDS: DOCUSATE SODIUM 100 MG CAPSULE PO SCH ×2 (09:01→17:22)
[2017-08-30] MEDS: AMIODARONE HCL 200 MG TABLET PO SCH (09:02)
[2017-08-30] MEDS: APIXABAN 5 MG TABLET PO SCH ×2 (09:02→21:36)
--- NOTE | 2017-08-30 16:26 | PDOC PROGRESS REPORT ---
Subjective Progress Note for:: 08/30/17 Subjective:: Patient has no new complaints. She still feels weak. She feels her right thigh is swollen Reason For Visit: RIGHT FEMUR FRACTURE Physical Exam Vital Signs: Temp Pulse Resp BP Pulse Ox 98.6 F 74 22 H 130/32 H 94 08/30/17 15:58 08/30/17 15:58 08/30/17 15:58 08/30/17 15:58 08/30/17 15:58 Intake & Output 08/29/17 08/30/17 08/31/17 06:59 06:59 06:59 Intake Total 1642 1040 Output Total 650 300 Balance 992 740 Weight 80 kg 79.6 kg General appearance: PRESENT: no acute distress, well-developed, well-nourished Head exam: PRESENT: atraumatic, normocephalic Eye exam: PRESENT: conjunctiva pink, EOMI, PERRLA. ABSENT: scleral icterus Ear exam: PRESENT: normal external ear exam Mouth exam: PRESENT: moist, tongue midline Neck exam: ABSENT: carotid bruit, JVD, lymphadenopathy, thyromegaly Respiratory exam: PRESENT: clear to auscultation chava. ABSENT: rales, rhonchi, wheezes Cardiovascular exam: PRESENT: RRR. ABSENT: diastolic murmur, rubs, systolic murmur Pulses: PRESENT: normal dorsalis pedis pul Vascular exam: PRESENT: normal capillary refill GI/Abdominal exam: PRESENT: normal bowel sounds, soft. ABSENT: distended, guarding, mass, organolmegaly, rebound, tenderness Rectal exam: PRESENT: deferred Extremities exam: PRESENT: other - Right thigh swelling but no tenderness or mass felt. ABSENT: calf tenderness, clubbing, pedal edema Neurological exam: PRESENT: alert, awake, oriented to person, oriented to place , oriented to time, oriented to situation, CN II-XII grossly intact. ABSENT: motor sensory deficit Psychiatric exam: PRESENT: appropriate affect, normal mood. ABSENT: homicidal ideation, suicidal ideation Skin exam: PRESENT: dry, intact, warm. ABSENT: cyanosis, rash Results Laboratory Results: 08/29/17 04:52 08/29/17 04:52 08/30/17 05:36 Retic Count (auto) 2.26 Absolute Retic 0.075 08/26/17 08/27/17 08/29/17 05:57 05:39 04:52 Troponin I 0.014 0.013 NT-Pro-B Natriuret Pep 454 H Impressions: Hip/Pelvis X-Ray 08/23/17 12:08 IMPRESSION: Acute comminuted right intertrochanteric proximal femoral fracture with mild varus angulation. Lumbar Spine X-Ray 08/23/17 13:33 IMPRESSION: Severe osteopenia. Diffuse degenerative disc disease. Fluoroscopy 08/25/17 00:00 IMPRESSION: Intra procedural imaging and fluoro Hip X-Ray 08/25/17 00:00 IMPRESSION: Intra procedural imaging and fluoro Knee X-Ray 08/28/17 00:00 IMPRESSION: Distal aspect right femoral intramedullary nail in good positioning. Suspect a small suprapatellar knee joint effusion. Mild lateral distal thigh soft tissue swelling Chest X-Ray 08/29/17 00:00 IMPRESSION: NO ACUTE RADIOGRAPHIC FINDING IN THE CHEST. Assessment & Plan - Diagnosis (1) Postoperative anemia Is this a current diagnosis for this admission?: Yes Plan: Hemoglobin remains stable (2) Closed right hip fracture Qualifiers: Encounter type: subsequent encounter Qualified Code(s): S72.001A - Fracture of unspecified part of neck of right femur, initial encounter for closed fracture Is this a current diagnosis for this admission?: Yes Plan: This appears to be healing well (3) COPD (chronic obstructive pulmonary disease) Qualifiers: COPD type: unspecified COPD Qualified Code(s): J44.9 - Chronic obstructive pulmonary disease, unspecified Is this a current diagnosis for this admission?: Yes Plan: Chronic stable (4) Hypothyroid Is this a current diagnosis for this admission?: Yes Plan: Amiodarone-induced. Continue Synthroid follow-up with TSH as outpatient (5) Thrombocytopenia Is this a current diagnosis for this admission?: Yes Plan: Follow-up with labs in the (6) Paroxysmal atrial fibrillation Is this a current diagnosis for this admission?: Yes Plan: Eliquis and rate control - Time Time Spent with patient: 15-24 minutes Medications reviewed and adjusted accordingly: Yes Anticipated discharge: SNF Within: within 48 hours - Inpatient Certification Based on my medical assessment, after consideration of the patient's comorbidities, presenting symptoms, or acuity I expect that the services needed warrant INPATIENT care.: Yes Medical Necessity: Need For Continuous Telemetry Monitoring
--- NOTE | 2017-08-30 20:51 | PROGRESS NOTE E ---
Progress Note NAME: NILES KRUEGER : 1935 AGE: 82Y DATE: 08/30/2017 ROOM: 334 SUBJECTIVE: The patient denies any chest pain or discomfort. There is no PND, orthopnea or shortness of breath. She has no recurrence of atrial fibrillation. There is no ventricular arrhythmia on the monitor. There is no leg edema. There is no PND or orthopnea. There are no palpitations. There are no TIA or CVA symptoms. The patient is in sinus rhythm. There is no bleeding on Eliquis. OBJECTIVE: GENERAL: Patient is slightly overweight, in no acute distress. She is well-groomed. VITAL SIGNS: She is afebrile, with a temperature of 98.5 degrees Fahrenheit. Pulse is 72 beats per minute, blood pressure 137/38, respirations are 16 per minute. O2 sats are 92% on 1 liter nasal cannula. HEENT: Head is atraumatic, normocephalic. Eyes: Pupils are equal, round, regular, reactive to light and accommodation. Extraocular movements are normal. There is no conjunctival pallor. There is no scleral icterus. ENT is negative. NECK: Supple. There is no JVD. There is no lymphadenopathy. There is no goiter. Carotids are equal. There is no bruit. There is no transmission of murmur heard over the carotids of the aortic area. There is no carotid delay. Trachea is central. LUNGS: Show slightly diminished breath sounds at the left lower lobe; otherwise, clear to auscultation and percussion. There is diminished air entry and prolonged expiration throughout the lung donahue. HEART: S1, S2 are heard. There is no S3 gallop. There is no S4 gallop. There is a systolic murmur at the left sternal border, at the apex. There is no murmur of aortic stenosis. There is mild diastolic murmur of aortic regurgitation present. There is no mitral regurgitation murmur of significance. There is no rub. There are no gallops. S1 is of normal intensity. ABDOMEN: Soft, nontender. There is no hepatosplenomegaly. Bowel sounds are well-heard. There are no tender areas or masses. EXTREMITIES: Femorals are slightly diminished. There are no femoral bruits. Leg pulses diminished. There is no pedal edema. There is no DVT or cellulitis. There is no calf tenderness. There is no cyanosis or clubbing. Right hip dressing is dry. 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 PSYCHIATRIC: The patient's judgment and insight are intact. Her affect is normal. DIAGNOSTICS: The patient's absolute reticulocyte count is 0.075, and the reticulocyte count auto is 2.26. IMPRESSION: 1. RIGHT HIP FRACTURE, STATUS POST SURGERY, STABLE. 2. ANEMIA, STATUS POST BLOOD TRANSFUSION. Patient also on iron supplement and also B12 supplement. 3. CORONARY ARTERY DISEASE. Patient without anginal symptoms. No evidence of postop AL. The patient has a history of a right coronary artery stent. 4. PAROXYSMAL ATRIAL FIBRILLATION. At present, in sinus rhythm, on amiodarone. 5. HYPOTHYROIDISM, DUE TO AMIODARONE. Patient on replacement, Synthroid. Would have her recheck her thyroid levels in a month or so. 6. HISTORY OF COPD. At present, stable, with no acute exacerbation. 7. AORTIC ROOT/ASCENDING THORACIC AORTIC ANEURYSM, STABLE. 8. MODERATE AORTIC REGURGITATION, CLINICALLY STABLE. 9. HISTORY OF LUNG CANCER, STATUS POST LEFT LOWER LOBECTOMY. The patient claims it is cured. 10. HISTORY OF TOBACCO ABUSE DISORDER. RECOMMENDATIONS: Continue the patient on Eliquis. Continue the patient on amiodarone. Continue the patient on Synthroid. Recheck thyroid levels in a month or so. Continue her iron and B12. 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 Her medications have been reviewed. Note, medical decision-making now is of moderate complexity. Discussed with the attending physician. Medications have been reviewed. Will sign off the case. Note, 40 minutes were spent on this patient, with more than 50% of the time spent on direct patient care. Will sign off the case. Thank you. DICTATING PHYSICIAN: NATALYA MALAVE M.D. [id number] PHY#: [id number] ID: [id number] JOB#: [id number] ACCT: [id number] cc: >
[2017-08-30] MEDS: SIMVASTATIN 40 MG TABLET PO SCH (21:36)
[2017-08-30] MEDS: OXYCODONE HCL IR 5 MG TABLET PO PRN (21:37)
[2017-08-31] MEDS: LEVOTHYROXINE SODIUM 0.025 MG TABLET PO SCH (05:30)
[2017-08-31] MEDS: OXYCODONE HCL IR 5 MG TABLET PO PRN ×2 (05:34→21:15)
[2017-08-31 06:20] LABS: ABSOLUTE BASOPHILS # (AUTO) 0.1 10^3/uL (0.0-0.2); ABSOLUTE EOSINOPHILS # (AUTO) 0.8 10^3/uL (0.0-0.6); ABSOLUTE LYMPHOCYTES (AUTO) 0.9 10^3/uL (0.5-4.7); ABSOLUTE MONOCYTES (AUTO) 0.9 10^3/uL (0.1-1.4); BASOPHILS % (AUTO) 0.9 % (0-2); EOSINOPHILS % (AUTO) 9.6 % (0-6); HEMATOCRIT 27.7 % (36.0-47.0); HEMOGLOBIN 9.4 g/dL (12.0-15.5); LYMPHOCYTES % (AUTO) 10.1 % (13-45); MEAN CORPUSCULAR HEMOGLOBIN 28.1 pg (27.0-33.4); MEAN CORPUSCULAR HGB CONC 33.9 g/dL (32.0-36.0); MEAN CORPUSCULAR VOLUME 83 fl (80-97); MONOCYTES % (AUTO) 10.7 % (3-13); PLATELET COUNT 235 10^3/uL (150-450); RED BLOOD COUNT 3.34 10^6/uL (3.72-5.28); RED CELL DISTRIBUTION WIDTH 17.5 % (11.5-14.0); SEGMENTED NEUTROPHILS % (AUTO) 68.7 % (42-78); TOTAL CELLS COUNTED % (AUTO) 100 %; WHITE BLOOD COUNT 8.7 10^3/uL (4.0-10.5)
[2017-08-31 06:47] LABS: ANION GAP 9 (5-19); BLOOD UREA NITROGEN 14 mg/dL (7-20); CALCIUM 8.1 mg/dL (8.4-10.2); CARBON DIOXIDE 28 mmol/L (22-30); CHLORIDE 96 mmol/L (98-107); GLUCOSE 100 mg/dL (75-110); POTASSIUM 3.7 mmol/L (3.6-5.0)
[2017-08-31] MEDS: APIXABAN 5 MG TABLET PO SCH ×2 (08:46→21:13)
[2017-08-31] MEDS: FUROSEMIDE 40 MG TABLET PO SCH (08:48)
[2017-08-31] MEDS: FERROUS SULFATE 325 MG TABLET PO SCH ×2 (08:49→17:38)
[2017-08-31] MEDS: ASPIRIN 81 MG TABLET, ENT COATED PO SCH (08:49)
[2017-08-31] MEDS: DOCUSATE SODIUM 100 MG CAPSULE PO SCH ×2 (08:49→17:38)
[2017-08-31] MEDS: CHOLECALCIFEROL (D3) 1,000 UNIT TABLET PO SCH (08:50)
[2017-08-31] MEDS: AMIODARONE HCL 200 MG TABLET PO SCH (08:50)
[2017-08-31] MEDS: CYANOCOBALAMIN (VITAMIN B-12) 1,000 MCG TABLET PO SCH (08:51)
--- NOTE | 2017-08-31 12:33 | PDOC PROGRESS REPORT ---
Subjective Progress Note for:: 08/31/17 Subjective:: Patient has no new complaints. She still feels weak but better today. She feels her right thigh is swollen Reason For Visit: RIGHT FEMUR FRACTURE Physical Exam Vital Signs: Temp Pulse Resp BP Pulse Ox 97.6 F 76 16 148/41 H 94 08/31/17 08:14 08/31/17 08:14 08/31/17 08:14 08/31/17 08:14 08/31/17 08:14 Intake & Output 08/30/17 08/31/17 09/01/17 06:59 06:59 06:59 Intake Total 1040 845 Output Total 300 1000 Balance 740 -155 Weight 79.6 kg 79.8 kg General appearance: PRESENT: no acute distress, well-developed, well-nourished Neck exam: ABSENT: carotid bruit, JVD, lymphadenopathy, thyromegaly Respiratory exam: PRESENT: clear to auscultation chava. ABSENT: rales, rhonchi, wheezes Cardiovascular exam: PRESENT: RRR, +S1, +S2. ABSENT: diastolic murmur, rubs, systolic murmur Rectal exam: PRESENT: deferred Musculoskeletal exam: PRESENT: other - Right thigh appears to be less swollen. There is minimal tenderness. Incision site appears clean with no discharge is Neurological exam: PRESENT: alert, awake, oriented to person, oriented to place , oriented to time, oriented to situation, CN II-XII grossly intact. ABSENT: motor sensory deficit Results Laboratory Results: 08/31/17 05:39 08/31/17 05:39 08/31/17 08/31/17 05:39 05:39 WBC 8.7 RBC 3.34 L Hgb 9.4 L Hct 27.7 L MCV 83 MCH 28.1 MCHC 33.9 RDW 17.5 H Plt Count 235 Seg Neutrophils % 68.7 Lymphocytes % 10.1 L Monocytes % 10.7 Eosinophils % 9.6 H Basophils % 0.9 Absolute Neutrophils 6.0 Absolute Lymphocytes 0.9 Absolute Monocytes 0.9 Absolute Eosinophils 0.8 H Absolute Basophils 0.1 Sodium 133.0 L Potassium 3.7 Chloride 96 L Carbon Dioxide 28 Anion Gap 9 BUN 14 Creatinine 0.75 Est GFR ( Amer) > 60 Est GFR (Non-Af Amer) > 60 Glucose 100 Calcium 8.1 L 08/26/17 08/27/17 08/29/17 05:57 05:39 04:52 Troponin I 0.014 0.013 NT-Pro-B Natriuret Pep 454 H Impressions: Hip/Pelvis X-Ray 08/23/17 12:08 IMPRESSION: Acute comminuted right intertrochanteric proximal femoral fracture with mild varus angulation. Lumbar Spine X-Ray 08/23/17 13:33 IMPRESSION: Severe osteopenia. Diffuse degenerative disc disease. Fluoroscopy 08/25/17 00:00 IMPRESSION: Intra procedural imaging and fluoro Hip X-Ray 08/25/17 00:00 IMPRESSION: Intra procedural imaging and fluoro Knee X-Ray 08/28/17 00:00 IMPRESSION: Distal aspect right femoral intramedullary nail in good positioning. Suspect a small suprapatellar knee joint effusion. Mild lateral distal thigh soft tissue swelling Chest X-Ray 08/29/17 00:00 IMPRESSION: NO ACUTE RADIOGRAPHIC FINDING IN THE CHEST. Assessment & Plan - Diagnosis (1) Postoperative anemia Is this a current diagnosis for this admission?: Yes Plan: Hemoglobin remains stable (2) Closed right hip fracture Qualifiers: Encounter type: subsequent encounter Qualified Code(s): S72.001A - Fracture of unspecified part of neck of right femur, initial encounter for closed fracture Is this a current diagnosis for this admission?: Yes Plan: Appears to be healing well (3) COPD (chronic obstructive pulmonary disease) Qualifiers: COPD type: unspecified COPD Qualified Code(s): J44.9 - Chronic obstructive pulmonary disease, unspecified Is this a current diagnosis for this admission?: Yes Plan: Stable (4) Hypothyroid Is this a current diagnosis for this admission?: Yes (5) Thrombocytopenia Is this a current diagnosis for this admission?: Yes Plan: Resolving (6) Paroxysmal atrial fibrillation Is this a current diagnosis for this admission?: Yes Plan: Continue amiodarone and Eliquis - Time Time Spent with patient: 15-24 minutes Anticipated discharge: Acute Rehab Within: within 24 hours - Inpatient Certification Based on my medical assessment, after consideration of the patient's comorbidities, presenting symptoms, or acuity I expect that the services needed warrant INPATIENT care.: Yes Medical Necessity: Need Close Monitoring Due to Risk of Patient Decompensation - Plan Summary Plan Summary: Patient can be discharged to rehab in a.m. if she remains stable
--- NOTE | 2017-08-31 15:30 | PDOC DISCHARGE SUMMARY ---
General - Admit/Disc Date/PCP Admission Date/Primary Care Provider: 08/23/17 13:52 KISHA PAYNE MD Discharge Date: 08/31/17 - Discharge Diagnosis (1) Closed right hip fracture Is this a current diagnosis for this admission?: Yes (2) Postoperative anemia Is this a current diagnosis for this admission?: Yes (3) COPD (chronic obstructive pulmonary disease) Is this a current diagnosis for this admission?: Yes (4) Hypothyroid Is this a current diagnosis for this admission?: Yes (5) Paroxysmal atrial fibrillation Is this a current diagnosis for this admission?: Yes (6) Aortic aneurysm of unspecified site without mention of rupture Is this a current diagnosis for this admission?: Yes Summary: Chronic - Additional Information Resuscitation Status: Full Code Home Medications: Alendronate Sodium [Fosamax] 70 mg PO PINEDA@1000 08/12/17 Amiodarone HCl [Cordarone 200 mg Tablet] 200 mg PO DAILY 08/12/17 Aspirin [Aspirin EC] 81 mg PO DAILY 08/12/17 Cholecalciferol (Vitamin D3) [Vitamin D3] 2,000 unit PO DAILY 08/12/17 Furosemide [Lasix 40 mg Tablet] 40 mg PO QAM 08/12/17 Pantoprazole Sodium [Protonix] 40 mg PO DAILY 08/12/17 Simvastatin [Zocor 20 mg Tablet] 20 mg PO DAILY 08/12/17 Ascorbic Acid [Vitamin C 500 mg Tablet] 1,000 mg PO DAILY 08/23/17 Fexofenadine HCl [Carol] 180 mg PO DAILY 08/23/17 Calcium Carbonate [Tums Chewable 500 mg Tab.chew] 1 tab PO PRN PRN 08/27/17 Apixaban [Eliquis 5 mg Tablet] 5 mg PO Q12 tablet 08/31/17 Cyanocobalamin (Vitamin B-12) [Vitamin B-12 1000 mcg Tablet] 1,000 mcg PO DAILY tablet 08/31/17 Ferrous Sulfate [Feosol 325 mg Tablet] 325 mg PO BIDPCBS tablet 08/31/17 Levothyroxine Sodium [Synthroid 0.025 mg Tablet] 0.025 mg PO Q6AM tablet History of Present Illness History of Present Illness: NILES KRUEGER is a 82 year old female Patient was admitted with mechanical fall on her right side and she was found to have sustained a right hip fracture. Hospital Course Hospital Course: Patient was admitted with mechanical fall on her right side and she was found to have sustained a right hip fracture. She had a open reduction and internal fixation of the right intra-trochanteric femoral fracture done on August 25. That seems to be progressing as expected however patient did have postoperative anemia that required transfusion of 2 units of packed red blood cells. She does have a history of paroxysmal atrial fibrillation and had been on Eliquis. This has since been restarted as her hemoglobin has remained stable. She was seen by Dr. Marion on consultation due to her cardiac illness. Echocardiogram was done which revealed a ejection fraction of 65%. She continued on amiodarone. She was subsequently found to be hypothyroid and this was thought to be secondary to amiodarone and she was started on Synthroid. Patient would need follow-up with her primary care physician for monitoring of her thyroid function and adjustment of her medications as needed. She has since remained hemodynamically stable and with no further interventions been done as she is being discharged to long-term as she is physically deconditioned and will need physical therapy postoperatively chronic Physical Exam Vital Signs: Temp Pulse Resp BP Pulse Ox 97.6 F 76 16 148/41 H 94 08/31/17 08:14 08/31/17 08:14 08/31/17 08:14 08/31/17 08:14 08/31/17 08:14 Intake & Output 08/30/17 08/31/17 09/01/17 06:59 06:59 06:59 Intake Total 1040 845 Output Total 300 1000 Balance 740 -155 Weight 79.6 kg 79.8 kg General appearance: PRESENT: no acute distress, well-developed, well-nourished Head exam: PRESENT: atraumatic, normocephalic Eye exam: PRESENT: conjunctiva pink, EOMI, PERRLA. ABSENT: scleral icterus Ear exam: PRESENT: normal external ear exam Mouth exam: PRESENT: moist, tongue midline Neck exam: ABSENT: carotid bruit, JVD, lymphadenopathy, thyromegaly Respiratory exam: PRESENT: clear to auscultation chava. ABSENT: rales, rhonchi, wheezes Cardiovascular exam: PRESENT: RRR. ABSENT: diastolic murmur, rubs, systolic murmur Pulses: PRESENT: normal dorsalis pedis pul Vascular exam: PRESENT: normal capillary refill GI/Abdominal exam: PRESENT: normal bowel sounds, soft. ABSENT: distended, guarding, mass, organolmegaly, rebound, tenderness Rectal exam: PRESENT: deferred Extremities exam: PRESENT: joint swelling - Right knee, other - Incision site at the right thigh appears to be intact there is some swelling of the right thigh but no mass felt. ABSENT: calf tenderness, clubbing, pedal edema Neurological exam: PRESENT: alert, awake, oriented to person, oriented to place , oriented to time, oriented to situation, CN II-XII grossly intact. ABSENT: motor sensory deficit Psychiatric exam: PRESENT: appropriate affect, normal mood. ABSENT: homicidal ideation, suicidal ideation Skin exam: PRESENT: dry, intact, warm. ABSENT: cyanosis, rash Results Laboratory Results: 08/31/17 05:39 08/31/17 05:39 08/31/17 08/31/17 05:39 05:39 WBC 8.7 RBC 3.34 L Hgb 9.4 L Hct 27.7 L MCV 83 MCH 28.1 MCHC 33.9 RDW 17.5 H Plt Count 235 Seg Neutrophils % 68.7 Lymphocytes % 10.1 L Monocytes % 10.7 Eosinophils % 9.6 H Basophils % 0.9 Absolute Neutrophils 6.0 Absolute Lymphocytes 0.9 Absolute Monocytes 0.9 Absolute Eosinophils 0.8 H Absolute Basophils 0.1 Sodium 133.0 L Potassium 3.7 Chloride 96 L Carbon Dioxide 28 Anion Gap 9 BUN 14 Creatinine 0.75 Est GFR ( Amer) > 60 Est GFR (Non-Af Amer) > 60 Glucose 100 Calcium 8.1 L 08/26/17 08/27/17 08/29/17 05:57 05:39 04:52 Troponin I 0.014 0.013 NT-Pro-B Natriuret Pep 454 H Impressions: Hip/Pelvis X-Ray 08/23/17 12:08 IMPRESSION: Acute comminuted right intertrochanteric proximal femoral fracture with mild varus angulation. Lumbar Spine X-Ray 08/23/17 13:33 IMPRESSION: Severe osteopenia. Diffuse degenerative disc disease. Fluoroscopy 08/25/17 00:00 IMPRESSION: Intra procedural imaging and fluoro Hip X-Ray 08/25/17 00:00 IMPRESSION: Intra procedural imaging and fluoro Knee X-Ray 08/28/17 00:00 IMPRESSION: Distal aspect right femoral intramedullary nail in good positioning. Suspect a small suprapatellar knee joint effusion. Mild lateral distal thigh soft tissue swelling Chest X-Ray 08/29/17 00:00 IMPRESSION: NO ACUTE RADIOGRAPHIC FINDING IN THE CHEST. Qualifiers - * PATIENT BEING DISCHARGED WITH ANY OF THE FOLLOWING DIAGNOSIS: No Plan Time Spent: Greater than 30 Minutes
[2017-08-31] MEDS: SIMVASTATIN 40 MG TABLET PO SCH (21:13)
[2017-09-01] MEDS: LEVOTHYROXINE SODIUM 0.025 MG TABLET PO SCH (05:37)
[2017-09-01] MEDS: OXYCODONE HCL IR 5 MG TABLET PO PRN (08:11)
[2017-09-01 08:13] VITALS: BP 129/36
== END 2017-09-01 08:30 | DRG 482 ==
LOC: ER 11:49 → EH 13:52 → 4N 15:53 → 3S 08-25 14:49
PROVIDERS: ADMIT Internal Medicine; ATTEND Internal Medicine
PROC: 0QS604Z Reposition Right Upper Femur with Internal Fixation Device, Open Approach (ICD-10-PCS; principal; 2017-08-25 11:15)
DX: S72.141A Displaced intertrochanteric fracture of right femur, initial encounter for closed fracture (principal); I71.2 Thoracic aortic aneurysm, without rupture; W19.XXXA Unspecified fall, initial encounter; Y93.9 Activity, unspecified; Y92.9 Unspecified place or not applicable; Y99.9 Unspecified external cause status; I48.2 Chronic atrial fibrillation; J44.9 Chronic obstructive pulmonary disease, unspecified; D64.9 Anemia, unspecified; E78.5 Hyperlipidemia, unspecified; E03.9 Hypothyroidism, unspecified; I10 Essential (primary) hypertension; D69.6 Thrombocytopenia, unspecified; K21.9 Gastro-esophageal reflux disease without esophagitis; Z79.02 Long term (current) use of antithrombotics/antiplatelets; Z79.82 Long term (current) use of aspirin; Z79.899 Other long term (current) drug therapy; Z90.49 Acquired absence of other specified parts of digestive tract; Z90.710 Acquired absence of both cervix and uterus; Z88.2 Allergy status to sulfonamides; F17.200 Nicotine dependence, unspecified, uncomplicated
CPT/HCPCS: 01230; 36415; 36430; 71045; 72100; 80048; 80053; 81001; 82550; 82607; 82728; 82746; 83540; 83550; 83880; 84439; 84443; 84481; 84484; 85025; 85027; 85045; 85610; 86850; 86900; 86901; 86920; 93005; 93010; 93306; 96374; 96376; 99285; G8978-GP; G8979-GP; J0131; J0690; J1650; J1756; J2250; J2270; J2704; J3010; J3420; J3490; J7120; P9016